=== PATIENT | male | born 1940 | race African-American/Black ===

== ENCOUNTER → 2025-01-23 | Outpatient (CLI) | payer MEDICARE, BC, SELFPAY ==
[2025-01-23 10:08] LABS: Coccid Serology, CF (UCD)* See Sep Rpt
[2025-01-23 10:45] LABS: Basophils % (Auto) 1 % (0-2.5); Eosinophils # (Auto) 0.1 Thou/mm3 (0.0-0.5); Eosinophils % (Auto) 2 % (0-10); Hematocrit 31.9 % (41.0-53.0); Hemoglobin 10.6 g/dL (13.5-16.0); Immature Granulocytes % (Auto) 1 % (0-0); Immature Granulocytes Auto 0.04 Thou/mm3 (0.00-0.00); Lymphocytes # (Auto) 0.8 Thou/mm3 (1.0-4.8); Lymphocytes % (Auto) 27 % (10-50); Mean Corpuscular HGB Conc 33.2 g/dl (31.0-37.0); Mean Corpuscular Hemoglobin 32.9 pg (25.0-35.0); Mean Corpuscular Volume 99 fL (80-100); Monocytes # (Auto) 0.3 Thou/mm3 (0.0-0.8); Monocytes % (Auto) 12 % (0-12); Neutrophils # (Auto) 1.7 Thou/mm3 (1.8-7.7); Neutrophils % (Auto) 57 % (37-80); Nucleated Red Blood Cell % 0 /100 WBC (0); Platelet Count 124 Thou/mm3 (140-440); RDW Standard Deviation 50.8 fL (35.1-43.9); Red Blood Count 3.22 Miln/mm3 (4.50-5.90)
[2025-01-23 10:52] LABS: Glucose Estimated Average 103 mg/dL (80-131); Hemoglobin A1C 5.2 % Hgb (4.8-6.0)
[2025-01-23 11:13] LABS: Alanine Aminotransferase 15 U/L (10-49); Albumin, Serum 3.7 gm/dL (3.4-4.8); Albumin/Globulin Ratio 1.9 (1.2-2.2); Alkaline Phosphatase 110 U/L (46-116); Anion Gap 7 (7-16); Aspartate Amino Transferase 22 U/L (0-34); BUN/Creatinine Ratio 15 Ratio (12-20); Bilirubin,Total 0.4 mg/dL (0.3-1.2); Blood Urea Nitrogen 29 mg/dL (9-23); Calcium 8.9 mg/dL (8.3-10.6); Calcium (Corrected) 9.1 mg/dL (8.5-10.1); Carbon Dioxide 24.9 mMol/L (20.0-31.0); Cardiac Risk Estimate 2.6 RATIO (4.0-6.7); Chloride 112 mMol/L (98-107); Cholesterol 115 mg/dL (132-200); Creatinine (Component) 1.9 mg/dL (0.6-1.3); Free T4 (Free Thyroxine) 0.99 ng/dL (0.89-1.76); Glucose 92 mg/dL (74-106); HDL Cholesterol 44 mg/dL (40-60); LDL Cholesterol,Calculated 59 mg/dL (0-130); Osmolality,Calculated 292 (275-295); Potassium 4.4 mMol/L (3.4-5.1); Sodium 144 mMol/L (136-145); Thyroid Stimulating Hormone 2.21 uIU/mL (0.55-4.78); Total Protein 5.7 gm/dL (5.7-8.2); Triglycerides 60 mg/dL (30-150); eGFR 34 See Note
== END | disposition home or self-care (01) ==
PROVIDERS: PCP Internal Medicine; Referring Provider Internal Medicine Infectious Disease; Visit Provider Internal Medicine Infectious Disease
DX: I50.9 Heart failure, unspecified (principal)
CPT/HCPCS: 36415; 80053; 80061; 82306; 83036; 84439; 84443; 85025; 86171

== ENCOUNTER 2025-08-05 13:04 | Inpatient (IN) | payer MEDICARE, BC, SELFPAY ==
[2025-08-05] VITALS (13 sets, daily range): BP systolic 139–163; BP diastolic 75–95; PULSE 61–89; RESP 15–100; TEMP 36.1–36.6; O2SAT 98–100
--- NOTE | 2025-08-05 13:07 | EKG_ITS ---
[facility] Test Date: 2025-08-05 Pat Name: GENTRY KERNS Department: Room: - Gender: Male Floor Specialist: : 1940 Requested By: Rubi Sky Order Number: [id number] Reading MD: Rubi Sky Measurements Intervals [place] Rate: 68 P: 69 MT: 278 QRS: 57 QRSD: 82 T: 68 QT: 406 QTc: 434 Interpretive Statements SINUS RHYTHM WITH FIRST DEGREE AV BLOCK MINIMAL VOLTAGE CRITERIA FOR LVH, CONSIDER NORMAL VARIANT [MEETS CRITERIA IN ONE OF: R(aVL), S(V1), R(V5), R(V5/V6)+S(V1)] Compared to ECG 04/21/2024 12:27:41 First degree AV block now present /store/S0/[id number].pdf
--- NOTE | 2025-08-05 13:08 | PD.EDAMS ---
Altered Mental Status RME/HPI General Chief Complaint: Altered Mental Status Stated Complaint: AMS Time Seen by Provider: 08/05/25 13:07 Arrival date/time: 08/05/25 13:04 Limitations: physical limitation RME / HPI RME / HPI narrative: DR. 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 Per EMS, last known well time is unknown, though they estimate onset of altered status around 12:30 pm today when they were called. GCS was 14 en route. Patient is chronically bed bound. He is afebrile at 96.5?F rectal here at arrival. No chest or abdominal pain reported. Related Data Home Medications ?Medication ?Instructions ?Recorded ?Confirmed atenolol 50 mg tablet 50 mg PO DAILY ##0 12/23/10 08/06/25 fluconazole 200 mg tablet 200 mg PO DAILY 04/21/24 08/06/25 loperamide 2 mg capsule 2 mg PO BID PRN loose stool 08/06/25 08/06/25 tamsulosin 0.4 mg capsule 0.4 mg PO Q24H 08/06/25 08/06/25 Previous Rx's ?Medication ?Instructions ?Recorded amlodipine 2.5 mg tablet 2.5 mg PO HS #30 tabs 08/09/25 aspirin 81 mg capsule 81 mg PO QDAY #19 caps 08/09/25 atorvastatin 80 mg tablet (Lipitor) 80 mg PO QPM #30 tabs 08/09/25 clopidogrel 75 mg tablet 75 mg PO QDAY #30 tabs 08/09/25 Allergies Allergy/AdvReac Type Severity Reaction Status Date / Time doxycycline Allergy Severe WHELPS Verified 10/31/23 16:23 IMMEDIATELY fibrinolysin AdvReac Severe Rash Verified 04/21/24 11:45 morphine AdvReac Severe PARANOID, Verified 04/21/24 11:45 HALLUCINATIONS Review of Systems Review of Systems Systems Reviewed: All systems reviewed, normal except as documented Past Medical History Past Medical History CARDIAC: Positive Cardiac Disorders and Hypertension GASTROINTESTINAL: Positive Gastrointestinal Disorders, Gastrointestinal Bleed and Diverticulitis GENITOURINARY: Positive Genitourinary Disorders, Prostate Cancer and Benign Prostatic Hyperplasia ENT: Positive Cataracts (bilateral) HEMATOLOGIC: Positive Blood Disorders and Anemia OTHER HISTORY: Positive Blood Transfusions, Radiation Therapy, Cancer and Prostate Cancer Surgical History SURGICAL: Positive Bowel Surgery Social History SMOKING STATUS: Never smoker SUBSTANCE USE: does not use ALCOHOL: Never Travel History EBOLA RISK: No ED Exam General Limitations: Present physical limitation General appearance: Present other (chronically ill, acutely decompensating male, confused) Head Head exam: Present atraumatic, normocephalic and normal inspection Eye Eye exam: Present normal appearance, PERRL and EOMI ENT ENT exam: Present normal exam, normal oropharynx and mucous membranes moist Neck Neck exam: Present normal inspection, full ROM and trachea midline Chest Chest inspection: Present normal inspection and symmetric chest wall rise Respiratory Respiratory exam: Present normal lung sounds bilaterally Cardiovascular Cardiovascular exam: Present regular rate, normal rhythm and normal heart sounds Abdominal Exam Abdominal exam: Present soft and normal bowel sounds Extremities Exam Extremities exam: Present other (minimal movement of the right extremities but good movement of the left side) Back Exam Back exam: Present normal inspection Neurological Exam Neurological exam: Present other (confused; minimal movement of the right extremities but good movement of the left side) Psychiatric Psychiatric exam: Present normal affect and normal mood Skin Skin exam: Present warm, dry, intact and normal color Course Quality Measures Current suspected stage: sepsis Possible source: unknown Blood cultures ordered: yes Antibiotic ordered: Yes Pertinent labs: 08/05/25 13:21 Lactic Acid 1.9 mMol/L (0.4-2.0) Procalcitonin 0.10 ng/ml (0.0-0.49) 1658: Sepsis alert initiated. Orders made at this time are congruent with ED Adult Sepsis Order List. Re-evaluation is to be completed. 1730: Sepsis reassessment performed consisting of lab review, vitals, physical exam including auscultation of heart, lungs, and visual evaluation of capillary refills, mucosal membranes and extremities. sepsis Orders Category Date Time Status Bedside Blood Glucose NOW Care 08/05/25 13:07 Completed Bedside Blood Glucose NOW Care 08/05/25 16:29 Completed Bedside COVID-19 Antigen Test NOW Care 08/05/25 13:07 Completed Picker / Packer NOW Care 08/05/25 16:29 Completed Picker / Packer Q4H START 00 Care 08/05/25 13:07 Completed Continuous Pulse Oximetry NOW Care 08/05/25 16:29 Completed In and Out Catheter NEEDED Care 08/05/25 16:29 Completed Insert IV NOW Care 08/05/25 13:07 Completed Insert IV NOW Care 08/05/25 16:29 Completed NIH Stroke Scale now Care 08/05/25 16:29 Completed NPO NOW Care 08/05/25 16:29 Completed Nurse Swallow Screen x1 Care 08/05/25 16:29 Completed Straight [In and Out Catheter] X1 Care 08/05/25 13:10 Completed Strict Intake and Output Routine Care 08/05/25 13:07 Ordered Consult to Neurology / Tele-Neurology Routine Cons 08/05/25 16:[address] angio stroke protocol Stat Exams 08/05/25 16:[address] head/brain wo con Stat Exams 08/05/25 13:07 Completed XR chest 1V SEPSIS PROTOCOL Stat Exams 08/05/25 13:07 Completed Acetaminophen Stat Lab 08/05/25 13:21 Completed Ammonia Stat Lab 08/05/25 13:21 Completed Blood Culture (Lab) Stat Lab 08/05/25 13:18 Completed CBC Stat Lab 08/05/25 13:21 Completed CK [Creatine Kinase] Stat Lab 08/05/25 17:12 Completed Comprehensive Metabolic Panel Stat Lab 08/05/25 13:21 Completed Drug Screen,Urine Stat Lab 08/05/25 13:45 Completed Influenza A & B Rapid Panel Stat Lab 08/05/25 13:15 Completed Lactate (Lactic Acid) Stat Lab 08/05/25 13:21 Completed Partial Thromboplastin Time Stat Lab 08/05/25 13:21 Completed Procalcitonin Stat Lab 08/05/25 13:21 Completed Prothrombin Time with INR Stat Lab 08/05/25 13:21 Completed Prothrombin Time with INR Stat Lab 08/05/25 17:22 Completed Salicylate Stat Lab 08/05/25 13:21 Completed T4 (Thyroxine) Stat Lab 08/05/25 13:21 Completed TSH [Thyroid Stimulating Hormone] Stat Lab 08/05/25 13:21 Completed Troponin I Stat Lab 08/05/25 13:21 Completed Urinalysis Stat Lab 08/05/25 13:45 Completed Urine Culture Stat Lab 08/05/25 13:45 Completed Ringers Lactated 500 ml [Lactated Ringers] 500 ml Med 08/05/25 13:40 Discontinued IV 500 mls/hr cefTRIAXone/D5w 1gm IV premix [Rocephin/D5w 1gm IV Med 08/05/25 13:40 Discontinued premix] 1 gm in 50 ml IV STAT EKG (RT) Stat RT 08/05/25 13:07 Draft Oxygen Delivery NOW RT 08/05/25 13:07 Completed Oxygen Delivery NOW RT 08/05/25 16:29 Completed Vital Signs Vital signs: Vital Signs Pulse Rate 61 08/05/25 13:55 Respiratory Rate 19 08/05/25 13:55 Altered Mental Status MDM Narrative MDM Narrative:: Patient is an 84-year-old male medical history notable for hypertension, pulmonary cocci of mycoses, chronic venous insufficiency, chronic kidney disease is in the emergency department with acute confusion. Vital signs and exam as listed. Patient mildly hypothermic. Concern for SIRS, urinary tract infection, pneumonia, intracranial hemorrhage, metabolic disturbance, ACS. Ordered labs EKG chest x-ray as well as CT brain. Also offered medication for symptom relief and gentle fluid resuscitation. My interpretation: EKG performed at 1311 hours, sinus rhythm, rate 68, prolonged QT at 406, non specific T wave changes, not a cardiac alert 1:55p called listed phone numbers for family NA Labs without any acute hematologic abnormality. Patient without any white blood cell ovation, hemoglobin is at his baseline 10.5. Platelets 132, also at patient's baseline. Metabolic panel chronic kidney disease, creatinine at his baseline of 1.9. Lactic acid normal. Ammonia 38. Procalcitonin normal, thyroid studies unremarkable. Troponin not elevated. Urinalysis with 17 RBCs less than 1 WBC, negative leuk esterase, negative nitrites no bacteria less likely infected. Drug screen negative. Head CT with evidence of encephalomalacia however no acute abnormalities. Chest x-ray with mild vascular congestion. Patient is on room air. No lower extremity swelling. 4:28p patient's son arrival, let us know that the patient usually walks, moves all extremities and make sense and takes care of himself at home. He has been in distress because of the loss of his approximately 2 months ago. However patient not speaking clearly and not recognizing him is new as of last night in the late evening. Given new history provided by son activated patient as a stroke alert. Patient is outside of TNK window. CT brain and CTA head/neck w/o acute abnormalities. Concenr that patient may have had a stroke. Admitted to hospitalist service. I, Mary Griffin, am scribing for and in the presence of Dr. Soriano. 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 RADIOLOGY Procedure(s): CT head/brain wo con Accession Number(s): [id number] cc: Rufus Jon MD; Rubi Soriano MD~ Examination: CT brain head without contrast. 2-D sagittal coronal reconstructions Date and time of exam:August 05, 2025, 1323 hrs. Indications: Altered mental status today Comparison: October 10, 2021 CTDI: vol (mGy):50 DLP: (mGycm):1004 Technique: Multiple CT axial sections of the brain have been obtained, 5 mm slice thickness. Contrast has not been administered. 2-D sagittal, coronal reconstructions have been obtained Low dose protocols were performed. One or more of the following dose reduction techniques were used; automated exposure control, adjustment of the mA and/or KV according to patient size, use of iterative reconstruction technique. Findings: No significant ventricular enlargement. 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 No mass effect or midline shift Basal cisterns are not remarkable. Fourth ventricle is midline. Cranial vault intact. Impression: No interval acute hemorrhage, mass effect or midline shift Dictated By: Rufus Jon MD Procedure(s): XR chest 1V SEPSIS PROTOCOL Accession Number(s): [id number] cc: Rufus Jon MD; Rubi Soriano MD~ Examination: AP chest single view Technique one AP portable semiupright chest single view Date and time: August 05, 2025, 1319 hrs., Comparison April 21, 2024 Indications: Shortness of breath today Findings: Mild prominence left ventricle Mild to moderate vascular congestion. No lobar pneumonia or drake pulmonary edema Prominent osteopenia Impression: Mild to moderate vascular congestion Dictated By: Rufus Jon MD Medications / Prescriptions Medications or Prescriptions considered but not ordered:: none Medication administrations:: Medication Administration History Discontinued Medications Acetaminophen (Acetaminophen 325 Mg Tablet) 650 mg PO Q6HR PRN PRN Reason: Fever > 99.9 Stop: 09/04/25 19:47 Last Admin: 08/08/25 20:29 Dose: 650 mg Documented By: MONICO Amlodipine Besylate (Amlodipine Besylate 2.5 Mg Tablet) 2.5 mg PO HS MARCELLA Stop: 09/06/25 20:59 Last Admin: 08/08/25 20:32 Dose: 2.5 mg Documented By: Admin: 08/07/25 20:17 Dose: 2.5 mg Documented By: CASTRO Aspirin (Aspirin 325 Mg Tablet) 325 mg PO X1 ONE Stop: 08/05/25 19:44 Last Admin: 08/05/25 20:43 Dose: 325 mg Documented By: AMITA Aspirin (Aspirin Ec 81 Mg Tabec) 81 mg PO DAILY MARCELLA Stop: 09/05/25 08:59 Last Admin: 08/07/25 09:09 Dose: 81 mg Documented By: Admin: 08/06/25 08:37 Dose: 81 mg Documented By: KATY Aspirin (Aspirin 81 Mg Chew) 81 mg PO DAILY MARCELLA Stop: 09/05/25 08:59 Last Admin: 08/09/25 08:25 Dose: 81 mg Documented By: Admin: 08/08/25 08:37 Dose: 81 mg Documented By: ALLEN Comments: Ok to give per Dr. Martínez Atenolol (Atenolol 25 Mg Tablet) 50 mg PO DAILY MARCELLA Stop: 09/06/25 08:59 Last Admin: 08/09/25 08:24 Dose: 50 mg Documented By: Admin: 08/08/25 08:53 Dose: Not Given Documented By: ALLEN Non-Admin Reason: Held for Procedure Admin: 08/07/25 09:09 Dose: 50 mg Documented By: ESTHER Atorvastatin Calcium (Atorvastatin Calcium 20 Mg Tablet) 40 mg PO HS MARCELLA Stop: 09/04/25 20:59 Last Admin: 08/07/25 20:17 Dose: 40 mg Documented By: Admin: 08/06/25 20:18 Dose: 40 mg Documented By: Admin: 08/05/25 23:39 Dose: 40 mg Documented By: Atorvastatin Calcium (Atorvastatin Calcium 20 Mg Tablet) 80 mg PO HS MARCELLA Stop: 09/07/25 20:59 Last Admin: 08/08/25 20:28 Dose: 80 mg Documented By: [email or web address] Atropine Sulfate (Atropine Sulf Inj 1 Mg/Ml Vial) Confirm Administered Dose 1 mg .ROUTE .STK-MED ONE Stop: 08/08/25 12:06 Last Admin: 08/08/25 12:19 Dose: Not Given Documented By: JUSTO Non-Admin Reason: Duplicate Medication on eMAR Benzocaine (Benzocaine 20% (Hurricaine) [place] 1 Dose) Confirm Administered Dose 1 dose TOP .STK-MED ONE Stop: 08/08/25 12:06 Last Admin: 08/08/25 12:19 Dose: Not Given Documented By: JUSTO Non-Admin Reason: Duplicate Medication on eMAR Benzocaine (Benzocaine 20% (Hurricaine) [place] 1 Dose) 0 dose TOP X1 ONE Stop: 08/08/25 13:49 Last Admin: 08/08/25 13:49 Dose: 1 dose Documented By: JUSTO Clopidogrel Bisulfate (Clopidogrel Bisulfate 75 Mg Tablet) 300 mg PO X1 ONE Stop: 08/05/25 19:44 Last Admin: 08/05/25 20:43 Dose: 300 mg Documented By: AMITA Clopidogrel Bisulfate (Clopidogrel Bisulfate 75 Mg Tablet) 75 mg PO DAILY MARCELLA Stop: 09/05/25 08:59 Last Admin: 08/09/25 08:25 Dose: 75 mg Documented By: Admin: 08/08/25 08:37 Dose: 75 mg Documented By: ALLEN Comments: Ok to give per Dr. Martínez Admin: 08/07/25 09:10 Dose: 75 mg Documented By: Admin: 08/06/25 08:37 Dose: 75 mg Documented By: KATY Olanzapine 5 mg/ Sterile Water (2.1 ml) 0 mg IV QDAY [facility] Stop: 09/07/25 23:15 Last Admin: 08/08/25 23:42 Dose: Not Given Documented By: SOCO Non-Admin Reason: GIVEN IM Olanzapine 5 mg/ Sterile Water (2.1 ml) 0 mg IM QDAY [facility] Stop: 09/08/25 08:59 Olanzapine 5 mg/ Sterile Water (2.1 ml) 0 mg IM QDAY MARCELLA Stop: 09/07/25 23:40 Last Admin: 08/08/25 23:42 Dose: 1 dose Documented By: SOCO Comments: 5MG Fentanyl Citrate (Fentanyl Cit Inj 50 Mcg/Ml Amp 2ml) Confirm Administered Dose 200 mcg .ROUTE .STK-MED ONE Stop: 08/08/25 12:06 Last Admin: 08/08/25 12:19 Dose: Not Given Documented By: JUSTO Non-Admin Reason: Duplicate Medication on eMAR Fentanyl Citrate (Fentanyl Cit Inj 50 Mcg/Ml Amp 2ml) 50 mcg IVP X1 ONE Stop: 08/08/25 13:49 Last Admin: 08/08/25 13:49 Dose: 50 mcg Documented By: JUSTO Fluconazole (Fluconazole 100 Mg Tablet) 200 mg PO BID MARCELLA Stop: 08/15/25 08:59 Last Admin: 08/09/25 08:25 Dose: 200 mg Documented By: Admin: 08/08/25 20:28 Dose: 200 mg Documented By: Admin: 08/08/25 08:50 Dose: 200 mg Documented By: ALLEN Comments: ok to give per Dr. Martínez Flumazenil (Flumazenil Inj 0.1 Mg/Ml Vial 10 Ml) Confirm Administered Dose 1 mg .ROUTE .STK-MED ONE Stop: 08/08/25 12:07 Last Admin: 08/08/25 12:19 Dose: Not Given Documented By: DL Non-Admin Reason: Duplicate Medication on eMAR Heparin Sodium (Porcine) (Heparin Sod Inj 5000 Unit/Ml Vial) 5,000 unit SC Q8HR [facility] Stop: 08/20/25 13:59 Last Admin: 08/09/25 13:47 Dose: 5,000 unit Documented By: ALLEN Co-signed By: SC Admin: 08/09/25 05:34 Dose: 5,000 unit Documented By: MONICO Co-signed By: AD Admin: 08/08/25 22:00 Dose: Not Given Documented By: MONICO Non-Admin Reason: Patient Refused Admin: 08/08/25 15:39 Dose: 5,000 unit Documented By: ALLEN Co-signed By: LIZY Comments: Med given late due to patient returning from procedure at 1525 Admin: 08/08/25 05:03 Dose: 5,000 unit Documented By: IG Co-signed By: WB Admin: 08/07/25 21:15 Dose: 5,000 unit Documented By: IG Co-signed By: ALBERTA Admin: 08/07/25 13:24 Dose: 5,000 unit Documented By: ESTHER Co-signed By: CONNOR Admin: 08/07/25 05:41 Dose: 5,000 unit Documented By: IG Co-signed By: FIOR Admin: 08/06/25 21:05 Dose: 5,000 unit Documented By: IG Co-signed By: REUBEN Admin: 08/06/25 13:45 Dose: 5,000 unit Documented By: BR Co-signed By: MGD Ceftriaxone Sodium/Dextrose (Rocephin/D5w 1gm Iv Premix) 1 gm in 50 mls @ 100 mls/hr IV STAT STA Stop: 08/05/25 14:09 Last Infusion: 08/05/25 14:43 Dose: Infused Documented By: Admin: 08/05/25 14:13 Dose: 100 mls/hr Documented By: NIKOLAS Lactated Ringer's (Lactated Ringers) 500 mls @ 500 mls/hr IV .Q1H ONE Stop: 08/05/25 14:39 Last Infusion: 08/05/25 16:01 Dose: Infused Documented By: Admin: 08/05/25 14:25 Dose: 500 mls/hr Documented By: NIKOLAS Lactated Ringer's (Lactated Ringers) 1,000 mls @ 85 mls/hr IV .[id number] ONE Stop: 08/06/25 07:31 Last Admin: 08/05/25 20:46 Dose: 85 mls/hr Documented By: BD Lactated Ringer's (Lactated Ringers) 1,000 mls @ 100 mls/hr IV .Q10H MARCELLA Stop: 08/08/25 18:14 Last Admin: 08/08/25 08:37 Dose: 100 mls/hr Documented By: ALLEN Magnesium Sulfate (Magnesium Sulfate Ivpb) 4 gm in 50 mls @ 12.5 mls/hr IV X1 ONE Stop: 08/09/25 11:29 Last Admin: 08/09/25 08:07 Dose: 12.5 mls/hr Documented By: ALLEN Midazolam HCl (Midazolam Inj 1 Mg/Ml Vial 2 Ml) Confirm Administered Dose 2 mg .ROUTE .STK-MED ONE Stop: 08/08/25 12:06 Last Admin: 08/08/25 12:19 Dose: Not Given Documented By: DL Non-Admin Reason: Duplicate Medication on eMAR Midazolam HCl (Midazolam Inj 1 Mg/Ml Vial 2 Ml) Confirm Administered Dose 4 mg .ROUTE .STK-MED ONE Stop: 08/08/25 12:08 Last Admin: 08/08/25 12:19 Dose: Not Given Documented By: DL Non-Admin Reason: Duplicate Medication on eMAR Midazolam HCl (Midazolam Inj 1 Mg/Ml Vial 2 Ml) 3 mg IVP X1 ONE Stop: 08/08/25 13:49 Last Admin: 08/08/25 13:49 Dose: 3 mg Documented By: JUSTO Naloxone HCl (Naloxone Inj 0.4 Mg/Ml Vial) Confirm Administered Dose 0.4 mg .ROUTE .STK-MED ONE Stop: 08/08/25 12:07 Last Admin: 08/08/25 12:19 Dose: Not Given Documented By: JUSTO Non-Admin Reason: Duplicate Medication on eMAR Ondansetron HCl (Ondansetron Inj 2 Mg/Ml Inj 2 Ml) 4 mg IVP Q6H PRN; Protocol PRN Reason: NAUSEA OR VOMITING Stop: 09/04/25 18:37 Ondansetron HCl (Ondansetron Inj 2 Mg/Ml Inj 2 Ml) Confirm Administered Dose 4 mg .ROUTE .STK-MED ONE Stop: 08/08/25 12:07 Last Admin: 08/08/25 12:19 Dose: Not Given Documented By: JUSTO Non-Admin Reason: Duplicate Medication on eMAR Tamsulosin HCl (Tamsulosin Hcl 0.4 Mg Capsule) 0.4 mg PO Q24H MARCELLA Stop: 09/06/25 08:59 Last Admin: 08/09/25 08:25 Dose: 0.4 mg Documented By: Admin: 08/08/25 08:53 Dose: Not Given Documented By: ALLEN Non-Admin Reason: Held for Procedure Admin: 08/07/25 09:09 Dose: 0.4 mg Documented By: ESTHER see above if any Consultations Consultation(s) initiated? (list below): Yes Consultation #1 (Physician, Specialty, Details): Discussed test HPI, PMHx, lab, radiology results and/or management with resident working with the hospitalist. Will admit for further evaluation and management. Accepts patient for admission. Time: 17:57 Diagnosis Differential diagnosis altered mental status: other (Acute ischemic stroke, metabolic encephalopathy, and infection-related delirium.) Most likely diagnosis given after review of the tests above:: See below under clinical impression Admission Indicated Admission indicated?: indicated Admission Request Was there a request for admission?: Yes Admission Attestation Admission request attestation: Discussed case with Hospitalist service regarding admission. Discussed patients ED course, exam findings, labs, and radiology results. The Hospitalist [agrees] to accept the patient for admission. Disposition Plan Disposition Plan: Admit Critical Care Time Critical Care Time Critical Care Time: Yes Total Critical Care Time (min.): 60 Attestation: The high probability of sudden, clinically significant deterioration in the patient?s condition required the highest level of my preparedness to intervene urgently. The services I provided to this patient were to treat and/or prevent clinically significant deterioration. Services included the following: chart data review, reviewing nursing notes and/or old charts, documentation time, managing consultant collaboration regarding findings and treatment options, medication orders and management, direct patient care, vital sign assessments and ordering, interpreting and reviewing diagnostic studies and lab tests. Aggregate critical care time includes only time during which I was engaged in work directly related to the patient?s care, as described above, whether at bedside or elsewhere in the Emergency Department. It did not include time spent performing other reported procedures or the services of residents, students, nurses or physician assistants. Discharge Plan Plan Patient Disposition: Admit Acute Care w/in Hospital Patient condition on transfer: Stable Problem List Clinical Impression: Stroke Patient/Caregiver Discharge Instructions Other Activity Instructions:: Please follow-up with primary care physician within 5 days of admission Please follow-up with neurology within 5 to 7 days upon discharge Continue taking aspirin and Plavix until August 28 and afterwards discontinue the aspirin and continue taking Plavix daily. Continue taking atorvastatin 80 mg at bedtime Continue taking all other home medications as prescribed Please come back to the ER if symptoms persist or worsen.
[2025-08-05 13:42] LABS: Basophils # (Auto) 0.0 Thou/mm3 (0.0-0.2); Basophils % (Auto) 0 % (0-2.5); Eosinophils # (Auto) 0.1 Thou/mm3 (0.0-0.5); Eosinophils % (Auto) 1 % (0-10); Hematocrit 30.4 % (41.0-53.0); Hemoglobin 10.5 g/dL (13.5-16.0); Immature Granulocytes Auto 0.02 Thou/mm3 (0.00-0.00); Lactate (Lactic Acid) 1.9 mMol/L (0.4-2.0); Lymphocytes # (Auto) 0.8 Thou/mm3 (1.0-4.8); Lymphocytes % (Auto) 18 % (10-50); Mean Corpuscular HGB Conc 34.5 g/dl (31.0-37.0); Mean Corpuscular Hemoglobin 33.3 pg (25.0-35.0); Mean Corpuscular Volume 97 fL (80-100); Monocytes # (Auto) 0.6 Thou/mm3 (0.0-0.8); Monocytes % (Auto) 13 % (0-12); Neutrophils # (Auto) 2.9 Thou/mm3 (1.8-7.7); Neutrophils % (Auto) 67 % (37-80); Nucleated Red Blood Cell # 0.00 Thou/mm3 (0.00-0.00); Nucleated Red Blood Cell % 0 /100 WBC (0); Platelet Count 132 Thou/mm3 (140-440); RDW Standard Deviation 48.3 fL (35.1-43.9); Red Blood Count 3.15 Miln/mm3 (4.50-5.90); White Blood Count 4.3 Thou/mm3 (3.8-10.6)
[2025-08-05 14:00] LABS: INR 1.1 (0.9-1.3); Partial Thromboplastin Time 23.4 Seconds (22.0-36.0); Prothrombin Time 11.5 Seconds (9.0-12.2)
[2025-08-05 14:09] LABS: T4 (Thyroxine) 8.8 mcg/dL (4.5-10.9)
[2025-08-05] MEDS: cefTRIAXone/D5w 1gm IV premix 1 GM/50 ML BAG IV (14:13)
[2025-08-05 14:14] LABS: Acetaminophen < 2.0 mcg/mL (10.0-20.0); Alanine Aminotransferase 12 U/L (10-49); Albumin, Serum 3.9 gm/dL (3.4-4.8); Albumin/Globulin Ratio 1.7 (1.2-2.2); Alkaline Phosphatase 120 U/L (46-116); Anion Gap 9 (7-16); Aspartate Amino Transferase 29 U/L (0-34); BUN/Creatinine Ratio 15 Ratio (12-20); Bilirubin,Total 0.5 mg/dL (0.3-1.2); Blood Urea Nitrogen 28 mg/dL (9-23); Calcium 9.7 mg/dL (8.3-10.6); Calcium (Corrected) 9.8 mg/dL (8.5-10.1); Carbon Dioxide 21.0 mMol/L (20.0-31.0); Chloride 113 mMol/L (98-107); Creatinine (Component) 1.9 mg/dL (0.6-1.3); Globulin 2.3 gm/dL (2.3-3.5); Glucose 103 mg/dL (74-106); Osmolality,Calculated 290 (275-295); Potassium 4.9 mMol/L (3.4-5.1); Salicylate < 3.0 mg/dL; Sodium 143 mMol/L (136-145); Thyroid Stimulating Hormone 1.58 uIU/mL (0.55-4.78); Total Protein 6.2 gm/dL (5.7-8.2); Troponin I < 0.020 ng/mL (0.0-0.045); eGFR 34 See Note
[2025-08-05 14:14] LABS: Collection Type, Urine Clean Catch
[2025-08-05 14:15] LABS: Procalcitonin 0.10 ng/ml (0.0-0.49)
[2025-08-05 14:20] LABS: Influenza A Ag Negative; Influenza B Ag Negative
[2025-08-05 14:23] LABS: Bilirubin,Urine Negative (Negative); Blood,Urine 1+ (Negative); Clarity,Urine Clear (Clear/Hazy); Color,Urine Lt-Yellow (Lt Yel-Yel); Glucose, Urine Negative (Negative); Ketones,Urine Negative (Negative); Leukocyte Esterase,Urine Negative (Negative); Nitrite,Urine Negative (Negative); PH,Urine 5.5 (5.0-7.0); Protein,Urine Trace (Neg - Trace); RBC,Urine 17 /hpf (0-3); Specific Gravity,Urine 1.012 (1.001-1.035); Squamous Epithelial Cell,Urine < 1 /hpf (0-5); Urobilinogen,Urine Negative mg/dL (0.0-1.0); WBC,Urine < 1 /hpf (0-5)
[2025-08-05] MEDS: RINGERS LACTATED 500 ML 500 ML IV (14:25)
[2025-08-05 14:27] LABS: Ammonia 38 uMol/L (11-32)
[2025-08-05 14:41] LABS: Amphetamine/Methamp Scrn,U Negative (Negative); Barbiturate Screen,Urine Negative (Negative); Benzodiazepines Screen,Urine Negative (Negative); Benzoylecgonine Screen, Ur Negative (Negative); Fentanyl Screen,Urine Negative (Negative); Opiate Screen,Urine Negative (Negative); THC Screen,Urine Negative (Negative)
--- NOTE | 2025-08-05 16:29 | XR_ITS ---
Examination: CTA carotids with intravenous contrast CTA brain, head with intravenous contrast. 2-D sagittal, coronal reconstructions. 3-D reconstructions. Exam date and time: August 05, 2025, 1658 hrs. Indications: Onset focal neurologic deficit, clinical diagnosis stroke suspected, altered mental status, right-sided body weakness today CTDI: vol (mGy) 19.8 DLP: (mGycm) 488 Technique: Multiple CTA axial brain, head carotid images post intravenous contrast injection 75 cc, [id number]. 2-D sagittal, coronal reconstructions. 3-D reconstructions, 3-D post processing including vascular maximum intensity projection images. Low dose protocols were performed. One or more of the following dose reduction techniques were used; automated exposure control, adjustment of the mA and/or KV according to patient size, use of iterative reconstruction technique. Findings: Moderate calcification of the carotid bifurcations but no significant stenoses carotid bifurcations common carotid arteries or internal carotid arteries Dominant left vertebral artery in the neck with no critical vertebral artery stenoses Petrous juxtasellar internal carotid arteries intact M1 segments middle cerebral arteries middle cerebral artery trifurcation vessels anterior cerebral arteries fill with no large vessel occlusions Intracranial vertebral arteries basilar artery posterior cerebral branches fill with no large vessel occlusions Impression: No significant neck arterial stenoses No cerebral large vessel arterial occlusions or thrombus Given the patient's presentation, consider brain MRI MRA without contrast, stroke protocol, follow-up
--- NOTE | 2025-08-05 17:08 | PD.TNEURO ---
Tele Neuro Consultation Consultation Date 08/05/25 Most Recent Vital Signs Last Vital Signs Temp 96.9 F 08/05/25 16:03 Pulse 75 08/05/25 16:03 Resp 19 08/05/25 16:03 BP 163/75 H 08/05/25 16:03 Pulse Ox 100 08/05/25 16:03 O2 Del Method Room Air 08/05/25 16:03 Laboratory-Coagulation Panel PT 11.5 Seconds (9.0-12.2) 08/05/25 13:21 INR 1.1 (0.9-1.3) 08/05/25 13:21 APTT 23.4 Seconds (22.0-36.0) 08/05/25 13:21 Consultation Narrative [facility] Tele[facility]urology Consult Services Patient Name:???Escobar Perez Date of :???[id number] Identification Number:??? Date of Service:???08/05/2025 16:29:25 Diagnosis:?G93.49 - Encephalopathy Multifactorial Impression: ?This patient is an 84-year-old male with a past medical history of pulmonary coccidiomycosis, CKD, and hypertension presenting for evaluation of altered mental status. Patient appears mildly encephalopathic, but also has drift along the right side which appears to be new. Recommend thorough toxic metabolic evaluation in addition to stroke workup. Dual antiplatelet therapy with a plan for 21 days followed by aspirin monotherapy. MRI brain, echocardiogram, A1c, lipid. ? ?The patient is out of the window for thrombolytic administration and CT angiogram does not appear to demonstrate evidence of large vessel occlusion. Our recommendations are outlined below. Recommendations: ? Stroke/Telemetry Floor ? Neuro Checks (Q4) ? Bedside Swallow Eval ? DVT Prophylaxis ? IV Fluids, Normal Saline ? Head of Bed 30 Degrees ? Euglycemia and Avoid Hyperthermia (PRN Acetaminophen) ? Bolus with Clopidogrel 300 mg bolus x1 and initiate dual antiplatelet therapy with Aspirin 81 mg daily and Clopidogrel 75 mg daily ? Antihypertensives PRN if Blood pressure is greater than 220/120 or there is a concern for End organ damage/contraindications for permissive HTN. If blood pressure is greater than 220/120 give labetalol PO or IV or Vasotec IV with a goal of 15% reduction in BP during the first 24 hours. Sign Out: ? Discussed with Emergency Department Provider Advanced Imaging:Advanced imaging has been ordered. Results pending. Metrics: Last Known Well: Unknown Dispatch Time: 08/05/2025 16:29:25 Arrival Time: 08/05/2025 13:04:00 Initial Response Time: 08/05/2025 16:32:07Symptoms: ams. Initial patient interaction: 08/05/2025 16:35:20 NIHSS Assessment Completed: 08/05/2025 16:42:34Patient is not a candidate for Thrombolytic. Thrombolytic Medical Decision: 08/05/2025 16:42:35Patient was not deemed candidate for Thrombolytic because of following reasons: LKW outside 4.[address] Head: I personally reviewed all the CT images that were available to me and it showed: no acute findings Primary Provider Notified of Diagnostic Impression and Management Plan on: 08/05/2025 16:52:25 History of Present Illness:Patient is a 84 year old Male. Patient was brought by EMS for symptoms of ams. This patient is a 84-year-old male with a past medical history of pulmonary coccidioidomycosis, CKD, and hypertension presenting for evaluation of altered mental status. Patient states that he feels weak and confused, but is unable to tell me when the symptoms started. He feels that he is somewhat weaker on the right compared to the left, and states that he does have a prior history of stroke. He appears mildly encephalopathic and intermittently redirectable to history of present illness and examination. Family states that typically at baseline he is fully functional and independent, but yesterday afternoon began to appear weak was discovered this morning on waking to be severely altered. Last known well is unclear. ? Past Medical History: ?Hypertension Other PMH:? CKD ?Pulmonary cocci Medications: No Anticoagulant use? No Antiplatelet use Reviewed EMR for current medications Allergies:? Reviewed Social History: Drug Use: No Family History: There is no family history of premature cerebrovascular disease pertinent to this consultation ROS : 14 Points Review of Systems was performed and was negative except mentioned in HPI. Past Surgical History: There Is No Surgical History Contributory To Today?s Visit ? Examination: BP(163/75),?Pulse(75), 1A: Level of Consciousness - Alert; keenly responsive?+ 0 1B: Ask Month and Age - Could Not Answer Either Question Correctly?+ 2 1C: Blink Eyes & Squeeze Hands - Performs Both Tasks?+ 0 2: Test Horizontal Extraocular Movements - Normal?+ 0 3: Test Visual Ro - No Visual Loss?+ 0 4: Test Facial Palsy (Use Grimace if Obtunded) - Normal symmetry?+ 0 5A: Test Left Arm Motor Drift - No Drift for 10 Seconds?+ 0 5B: Test Right Arm Motor Drift - Drift, but doesn't hit bed?+ 1 6A: Test Left Leg Motor Drift - No Drift for 5 Seconds?+ 0 6B: Test Right Leg Motor Drift - Drift, but doesn't hit bed?+ 1 7: Test Limb Ataxia (FNF/Heel-Rivera) - No Ataxia?+ 0 8: Test Sensation - Normal; No sensory loss?+ 0 9: Test Language/Aphasia - Normal; No aphasia?+ 0 10: Test Dysarthria - Normal?+ 0 11: Test Extinction/Inattention - No abnormality?+ 0 NIHSS Score:?4 Pre-Morbid Modified [place] Scale: 1 Points = No significant disability despite symptoms; able to carry out all usual duties and activities Spoke with :?Dr. Cross This consult was conducted in real time using interactive audio and video technology. Patient was informed of the technology being used for this visit and agreed to proceed. Patient located in hospital and provider located at home/office setting. Patient is being evaluated for possible acute neurologic impairment and high probability of imminent or life-threatening deterioration. I spent total of 35 minutes providing care to this patient, including time for face to face visit via telemedicine, review of medical records, imaging studies and discussion of findings with providers, the patient and/or family. Dr Dwayne Theodore [facility] For Inpatient follow-up with [facility] physician please call [facility] at . As we are not an outpatient service for any post hospital discharge needs please contact the hospital for assistance. If you have any questions for the [facility] physicians or need to reconsult for clinical or diagnostic changes please contact us via [facility] at . Signature :?Dwayne Theodore ?
[2025-08-05 18:16] LABS: INR 1.1 (0.9-1.3); Prothrombin Time 11.5 Seconds (9.0-12.2)
[2025-08-05 18:29] LABS: Creatine Kinase 326 U/L (34-171)
--- NOTE | 2025-08-05 18:40 | ECHO_ITS ---
Transthoracic Echo Report Ht (in): 72 Wt (lb): 108 Exam Location: [facility] Status: Inpatient [employer]: Nay James Indications: Procedure Performed: BP: 147 / 89 HR: 72 MEASUREMENTS (Male / Female) Normal Values 2D ECHO LV Diastolic Diameter PLAX 3.6 cm 4.2 - 5.9 / 3.9 - 5.3 cm LV Systolic Diameter PLAX 2.3 cm IVS Diastolic Thickness 0.9 cm 0.6 - 1.0 / 0.6 - 0.9 cm LVPW Diastolic Thickness 1.3 cm 0.6 - 1.0 / 0.6 - 0.9 cm LV Relative Wall Thickness 0.6 LVOT Diameter 1.8 cm LA Volume Index 34.3 cm?/m? 16 - 28 cm?/m? Ascending Aorta Diameter 3.0 cm M-MODE AV Cusp Separation MM 0.9 cm DOPPLER AV Peak Velocity 331.0 cm/s AV Peak Gradient 43.8 mmHg AV Mean Gradient 23.0 mmHg AV Velocity Time Integral 69.7 cm LVOT Peak Velocity 61.6 cm/s LVOT Peak Gradient 1.5 mmHg LVOT Velocity Time Integral 12.0 cm LVOT Cardiac Index 1417.5 cm?/min?m? AV Area Cont Eq vti 0.4 cm? AV Area Cont Eq pk 0.5 cm? MV Area PHT 5.6 cm? Mitral E Point Velocity 47.5 cm/s Mitral A Point Velocity 86.3 cm/s Mitral E to A Ratio 0.6 TR Peak Velocity 216.7 cm/s TR Peak Gradient 18.8 mmHg PV Peak Velocity 93.7 cm/s PV Peak Gradient 3.5 mmHg FINDINGS Left Ventricle Normal left ventricular size, wall thickness, systolic function with no obvious regional wall motion abnormalities. Normal left ventricular diastolic filling pattern for age. The ejection fraction is visually estimated at 65 %. Right Ventricle The right ventricle is normal in size and systolic function. Left Atrium The left atrial cavity size is moderately increased. Right Atrium The right atrium is normal by two-dimensional imaging, color flow and Doppler imaging with no structural abnormalities, no thrombus formation present. Atrial Septum The interatrial septum appears normal with no evidence of a shunt. Aorta The aorta is normal by two-dimensional, color flow and Doppler interrogation. Mitral Valve Mild mitral annular calcification. Mild thickening of the mitral valve leaflets. Mild mitral regurgitation. Aortic Valve Moderate aortic valve sclerosis. Mild aortic valve regurgitation Tricuspid Valve The tricuspid valve is normal by two-dimensional, color flow and Doppler interrogation. There is mild to moderate tricuspid valve regurgitation. Pulmonic Valve The pulmonic valve is not well visualized. There is no significant pulmonic valve regurgitation. Vessels The pulmonary artery appears normal. The inferior vena cava pulmonary and hepatic veins appear normal. Pericardium The pericardium is normal by two-dimensional imaging. There is no significant pericardial effusion. CONCLUSIONS Indication: CVA Aortic root is normal in dimension. Aortic valve showed evidence of heavy calcification with moderate to severe calcific aortic stenosis aortic velocity 3.3 m/s. Peak aortic valve gradient 44 mmHg mean gradient of 23 mmHg. There is evidence of mild aortic valve regurgitation. Normal-sized left ventricle with normal left lateral wall motion ejection fraction of 65%. The right ventricle is normal in size and systolic function. Mild mitral annulus calcification and thickening of the mitral leaflets with mild mitral regurgitation. Mild tricuspid regurgitation with normal PA pressure. Pinky Lange (Electronically Signed) Final Date: 06 August 2025 17:12
--- NOTE | 2025-08-05 19:17 | ESHP_ITS ---
<Statement entered by Elder Beck MD - 08/06/25 08:22> Patient examined and case discussed with the team including attending physician. Note reviewed, I agree with the care plan as documented. Please refer to the note below for further details. - Elder Beck MD, PGY 3 Disclaimer: The document may contain phonetic/typographic errors due to voice recognition software. These errors are purely due to imperfections in the software program. 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 Unknown last well time, estimated about 12:30 PM the day of presentation. GCS 14 and route. Patient is chronically bedbound. On initial evaluation by the hospital team the patient is a poor historian. He seems to be able to comprehend what is being told and asked of him respond in his intended manner. The patient has right hemineglect and his upper extremity. He was admitted for CVA workup. ED course: * Vitals on arrival: BP 147/76, pulse 61, respiratory 19, temp 96.9, 100% on room air. * Significant labs: Hemoglobin 10.5, hematocrit 30.4, chloride 113, BUN 28, creatinine 1.9, alk phos 120, ammonia 38, creatinine kinase 326. Urine positive for 1+ blood, 17 RBCs. * Imaging: Chest x-ray showed mild to moderate vascular congestion. Head CT was negative for any acute hemorrhage, encephalomalacia in the posterior left parietal lobe, small old infarct in left cerebellar hemisphere in the right basal ganglia. EKG showed a sinus rhythm with a rate of 68 with a first- degree AV block. Head neck CTA was positive for moderate calcification of the carotid bifurcations but no significant stenosis, there were no cerebral large vessel artery occlusions or thrombi. * The patient was started on fluids and given ceftriaxone 1 g in the ED. Neurology was consulted. History: (Limited as the patient is a poor historian, the following history was collected via chart review) * Past medical history: Hypertension, pulmonary Coccidioides, chronic venous insufficiency, CKD stage III * Surgical history: Patient mentions that he has had a stent put in his heart. Date unknown. Review of Systems Review of Systems Narrative Review of Systems: Review of Systems: (Limited as the patient is a poor historian) * General: Denies fevers, chills. * GI: Denies nausea, vomiting, diarrhea, constipation, melena, or hematochezia. * Neuro: Admits to speech difficulty Exam Vital Signs Temp Pulse Resp BP Pulse Ox O2 Del Method 97.7 F 89 25 H 156/79 H 100 Room Air 08/05/25 18:00 08/05/25 19:12 08/05/25 19:12 08/05/25 18:00 08/05/25 18:00 08/05/25 18:00 Narrative Exam General: Thin elderly man. Temporal wasting. Patient understands what is being said to him but is unable to speak more than 1 word answers. Neurologic: Hemineglect in the right upper extremity. Hemineglect in the right lower extremity. HEENT: Tongue deviation to the right. Heart: Grade 3 systolic ejection murmur left sternal border. Regular rate and rhythm. Lungs: Clear to auscultation bilaterally with no wheezing or crackles. Abdomen: Soft, nondistended, nontender, positive bowel sounds. No guarding or rebound tenderness. Extremities: No edema. 2+ radial and dorsalis pedis pulses bilaterally. Skin: Warm. Dry. No rash or ecchymoses. Results: Labs 08/06/25 04:45 08/06/25 04:45 Labs: Short CBC 08/05/25 Range/Units 13:21 WBC 4.3 (3.8-10.6) Thou/mm3 Hgb 10.5 L (13.5-16.0) g/dL Hct 30.4 L (41.0-53.0) % Plt Count 132 L (140-440) Thou/mm3 BMP 08/05/25 13:21 Sodium 143 Potassium 4.9 Chloride 113 H Carbon Dioxide 21.0 BUN 28 H Creatinine 1.9 H Glucose 103 Calcium 9.7 Cardiac Enzymes 08/05/25 08/05/25 Range/Units 13:21 17:12 Total Creatine Kinase 326 H (34-171) U/L Troponin I < 0.020 (0.0-0.045) ng/mL Liver Function 08/05/25 Range/Units 13:21 Total Bilirubin 0.5 (0.3-1.2) mg/dL AST 29 (0-34) U/L ALT 12 (10-49) U/L Alkaline Phosphatase 120 H (46-116) U/L Albumin 3.9 (3.4-4.8) gm/dL Urine 08/05/25 Range/Units 13:45 Urine Color Lt-Yellow (Lt Yel-Yel) Urine Clarity Clear (Clear/Hazy) Urine pH 5.5 (5.0-7.0) Ur Specific [place] 1.012 (1.001-1.035) Urine Protein Trace (Neg - Trace) Urine Glucose (UA) Negative (Negative) Quality Measures Quality Measures sepsis Current suspected stage: ruled out Possible source: unknown Blood cultures ordered: yes Antibiotic ordered: No Advance care planning discussed with:: patient Medications Home Medications and Allergies Home Medications ?Medication ?Instructions ?Recorded ?Confirmed ?Type atenolol 50 mg tablet 50 mg PO DAILY ##0 12/23/10 08/06/25 History amlodipine 2.5 mg tablet 2.5 mg feeding tube HS 04/2108/06/25 History fluconazole 200 mg tablet 200 mg PO DAILY 04/21/24 History loperamide 2 mg capsule 2 mg PO BID PRN loose stool 08/06/25 08/06/25 History tamsulosin 0.4 mg capsule 0.4 mg PO Q24H 08/06/2507/10 History Allergies Allergy/AdvReac Type Severity Reaction Status Date / Time doxycycline Allergy Severe WHELPS Verified 10/31/23 16:23 IMMEDIATELY fibrinolysin AdvReac Severe Rash Verified 04/21/24 11:45 morphine AdvReac Severe PARANOID, Verified 04/21/24 11:45 HALLUCINATIONS Visit Medications Ondansetron HCl (Ondansetron Inj 2 Mg/Ml Inj 2 Ml) 4 mg IVP Q6H PRN; Protocol PRN Reason: NAUSEA OR VOMITING Stop: 09/04/25 18:37 Discontinued Medications Ceftriaxone Sodium/Dextrose (Rocephin/D5w 1gm Iv Premix) 1 gm in 50 mls @ 100 mls/hr IV STAT STA Stop: 08/05/25 14:09 Last Infusion: 08/05/25 14:43 Dose: Infused Lactated Ringer's (Lactated Ringers) 500 mls @ 500 mls/hr IV .Q1H ONE Stop: 08/05/25 14:39 Last Infusion: 08/05/25 16:01 Dose: Infused Assessment & Plan Plan Summary: 84-year male with past medical history of hypertension, 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 Patient was admitted for workup of his CVA workup. #Altered mental status #CVA * Last known well was around 12:30 PM the day of admission * Head CT showed a small old infarct in the left cerebellar hemisphere right basal ganglia. Encephalomalacia in the posterior left parietal lobe. No acute hemorrhage. Plan: * Neurology consulted * Brain MRI * Neurochecks Q4 * Bedside swallow eval * IV fluid maintenance * Aspiration precautions * DAPT: 300 mg clopidogrel bolus x 1 followed by 75 daily. Aspirin 325 mg bolus followed by 81 mg daily * Atorvastatin 80 mg at bedtime * Speech referral * PT referral #Normocytic anemia * MCV 97, hemoglobin 10.5, hematocrit 30.4 on arrival * On review of the patient's past visits, this appears to be a chronic condition * Considering the presence of old age, chronic bedbound, and chronic Coccidioides infection Plan: * No direct intervention at this time * Trend H&H with morning labs * Transfuse if hemoglobin below 7 #HIPOLITO on CKD stage III * BUN 28, creatinine 1.9 on arrival * Per chart review baseline creatinine is roughly 1.7 Plan: * Avoid nephrotoxic agents * Renally dose medications #Hypertension * Stage II hypertension 147/76 Plan: * Will allow for permissive hypertension over the first 24 hours * Pending med rec, consider resuming home amlodipine and atenolol following 24- hour window #Chronic Coccidioides pulmonary infection * Per chart review, patient is on fluconazole chronically Plan: * Consider restarting fluconazole after swallow eval passed Hospital Maintenance: DVT ppx: DAPT: Aspirin 81 mg daily, Plavix 75 mg daily Diet: N.p.o. for now, pending swallow eval IV lines: Peripheral IVs Code status: Full code, follow-up with point of contact Dispo: Patient will be admitted for CVA workup. Started on DAPT. Neurocheck Q4 on the telemetry floor. Being MRI brain and neurology consult. Patient was seen and discussed with my attending physician Dr. Bryan PÉREZ and my senior resident Dr. Kiran PÉREZ PGY-3. Marco Juan DO PGY-1. Attending Provider Attestation/Addendum I attest that I was physically present for the evaluation, physical examination, lab and imaging review of the patient with the residents. I discussed the case with the residents and agree with the findings and plans of care as documented above. After examination of the patient and review of the clinical data I feel that this patient needs admission to the hospital for further treatment/evaluation Farhat Adams MD
[2025-08-05] MEDS: CLOPIDOGREL BISULFATE 75 MG TABLET 300 MG PO (20:43)
[2025-08-05] MEDS: RINGERS LACTATED 1000 ML 1,000 ML 85 ML IV (20:46)
--- NOTE | 2025-08-05 22:58 | XR_ITS ---
Examination: CT brain head without contrast. 2-D sagittal coronal reconstructions Date and time of exam:July 28, 2025 1109 hrs., Comparison 08/05/2025 1323 hrs. CTDI: vol (mGy):50.2 DLP: (mGycm):963 Technique: Multiple CT axial sections of the brain have been obtained, 5 mm slice thickness. Contrast has not been administered. 2-D sagittal, coronal reconstructions have been obtained Low dose protocols were performed. One or more of the following dose reduction techniques were used; automated exposure control, adjustment of the mA and/or KV according to patient size, use of iterative reconstruction technique. Findings: No significant ventricular enlargement. Intra-axial or extra-axial hemorrhage density is not seen. No mass effect or midline shift Basal cisterns are not remarkable. Fourth ventricle is midline. Cranial vault intact. Impression: No interval acute hemorrhage, mass effect or midline shift
[2025-08-05] MEDS: ATORVASTATIN CALCIUM 20 MG TABLET 40 MG PO (23:39)
--- NOTE | 2025-08-05 23:47 | PD.RESEVENT ---
Documentation for date of: 08/05/25 Event Note Event Note: Rapid response was called at 22:42 for change in NIHSS stroke called. On arrival nurse report RR called for NIHSS scale score from 4 to 7. Upon evaluation patient was sitting comfortably in bed, vitals were blood pressure 139/88, temperature 96.9, RR's 22, O2 sat 100% on room air. Patient doesn't appear in distress at this moment. Per RN and at at bedside patient is unable to articulate words and responds to questions. Per primary team at signout I was made aware that patient might have had Broca's aphasia upon presentation. Stroke alert initiated and teleneuro was consulted and he recommends head CT and EEG. Will continue to monitor for any change in NIHSS scale. Patient seen and assessed under supervision of attending physician Dr.Alhalaibeh Cindy Callahan MD PGY-1, Internal Medicine Please note: this document was transcribed using voice recognition technology; minor inaccuracies may be present.
[2025-08-06] VITALS (9 sets, daily range): BP systolic 118–147; BP diastolic 74–89; PULSE 64–90; RESP 12–100; TEMP 36–36.6; O2SAT 98–100; BMI 16.9
--- NOTE | 2025-08-06 | XR_ITS ---
Examinations: MRI Brain without intravenous contrast. MRA brain without intravenous contrast. MRA carotids without intravenous contrast 3-D vascular reconstructions Date and time of exam: August 06, 2025, 0803 hours INDICATIONS: Stroke alert 07/28/2025, onset focal neurologic deficit, altered mental status Technique: Multiple axial and sagittal images of the brain have been obtained MRA brain carotid images without contrast obtained, including 3-D postprocessing, vascular maximum intensity projection images Findings: [place] is not enlarged. The optic chiasm and infundibular stalk are not remarkable. Prepontine and interpeduncular cisterns are not enlarged. No localized enlargement of the medulla or lubna. Fourth ventricle and cerebellar tonsils normal in position. Subacute hemorrhage is not seen. Fourth ventricle is midline. Mass in the cerebellopontine angle region is not evident. 7th and 8th nerve complexes exhibits symmetry. Globes are symmetrical with no retro-orbital mass. Increased white matter signal prominent Diffusion-weighted images demonstrate multiple tiny foci restricted diffusion including left basal ganglia, left occipital lobe, posterior left parietal lobe high left parietal lobe, the largest in the high left parietal lobe is 7 mm Mass-effect upon the ventricular system is not identified. MRA carotid images no critical carotid stenoses. 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
--- NOTE | 2025-08-06 00:37 | ESCONSULT_ITS ---
Tele Neuro Consultation Consultation Date 08/06/25 Most Recent Vital Signs Last Vital Signs Temp 96.9 F 08/05/25 23:05 Pulse 77 08/06/25 00:06 Resp 22 H 08/06/25 00:06 BP 139/88 H 08/05/25 23:05 Pulse Ox 100 08/05/25 23:05 O2 Del Method Room Air 08/05/25 21:13 Laboratory-Coagulation Panel PT 11.5 Seconds (9.0-12.2) 08/05/25 17:22 INR 1.1 (0.9-1.3) 08/05/25 17:22 APTT 23.4 Seconds (22.0-36.0) 08/05/25 13:21 Consultation Narrative [facility] TeleNeurology Consult Services Patient Name:???Escobar Perez Date of :???1940 Date of Service:???08/05/2025 22:46:14 Diagnosis:?I63.89 - Cerebrovascular accident (CVA) due to other mechanism ([facility]) Impression: ?This is an 84 yo man presenting for altered mental status, weakness on the right. He does seem to have worsening aphasia since arrival. Last normal unclear. Prior imaging was negative for LVO. He will need a brain MRI to assess for stroke. Agree with dual antiplatelet as recommended before. ? ?Can also consider EEG, though low suspicion of seizures. ? Our recommendations are outlined below. Recommendations: ? Stroke/Telemetry Floor ? Neuro Checks (Q4) ? Bedside Swallow Eval ? DVT Prophylaxis ? IV Fluids, Normal Saline ? Head of Bed 30 Degrees ? Euglycemia and Avoid Hyperthermia (PRN Acetaminophen) ? Initiate dual antiplatelet therapy with Aspirin 81 mg daily and Clopidogrel 75 mg daily. Advanced Imaging: Advanced Imaging Deferred because: Advanced Imaging not obtained at this time. Reason: already done earlier, LKN unclear but seems like well over 24h ago Metrics: Last Known Well: Unknown Dispatch Time: 08/05/2025 22:46:14 Initial Response Time: 08/05/2025 22:48:55Symptoms: AMS, weakness. Initial patient interaction: 08/05/2025 22:52:32 NIHSS Assessment Completed: 08/05/2025 23:00:36Patient is not a candidate for Thrombolytic. Thrombolytic Medical Decision: 08/05/2025 23:00:37Patient was not deemed candidate for Thrombolytic because of following reasons: LKW outside 4.[address] Head: CT head unremarkable for acute infarction or hemorrhage per Radiology: old left parietal infarct, no acute pathology Primary Provider Notified of Diagnostic Impression and Management Plan on: 08/05/2025 22:59:46 Spoke With: Dr. Suarez Able to Reach 08/05/2025 22:59:46 History of Present Illness:Patient is a 84 year old Male. Inpatient stroke alert was called for symptoms of AMS, weakness. This is an 84 yo man who is currently admitted for evaluation of altered mental status and rule out stroke . He presented earlier by EMS. We do not have a last known normal time. A stroke alert is called because nursing reports a worsening in the NIHSS compared to what they were told. Nursing states NIHSS was 4 in the ER and is 7 on arrival to the floor. The change is due to aphasia. Per the H&P, he could not speak more than one word answers to the admitting physician. He was seen by neurology in the ER who also gave him NIHSS of 4. A head CT was negative for acute pathology and a CTA H/N was neg for LVO. Notable labs: BUN 28, creatinine 1.9, NH3 36. Past Medical History: ?Hypertension Medications: Anticoagulant use:??Unknown Antiplatelet use:?Unknown Reviewed EMR for current medications Allergies:? Allergies Unable To Obtain Due To:?Patient Cannot Speak Social History: Unable To Obtain Due To Patient Status :?Patient Cannot Speak Family History: Family History Cannot Be Obtained Because:Patient Cannot Speak ROS :?ROS Cannot Be Obtained Because:? Patient Cannot Speak Past Surgical History: Past Surgical History Cannot Be Obtained Because: Patient Cannot Speak Examination: BP(139/88),?Pulse(72),?Blood Glucose(78) 1A: Level of Consciousness - Alert; keenly responsive?+ 0 1B: Ask Month and Age - Aphasic?+ 2 1C: Blink Eyes & Squeeze Hands - Performs 1 Task?+ 1 2: Test Horizontal Extraocular Movements - Normal?+ 0 3: Test Visual Ro - No Visual Loss?+ 0 4: Test Facial Palsy (Use Grimace if Obtunded) - Normal symmetry?+ 0 5A: Test Left Arm Motor Drift - No Drift for 10 Seconds?+ 0 5B: Test Right Arm Motor Drift - Drift, but doesn't hit bed?+ 1 6A: Test Left Leg Motor Drift - No Drift for 5 Seconds?+ 0 6B: Test Right Leg Motor Drift - Drift, but doesn't hit bed?+ 1 7: Test Limb Ataxia (FNF/Heel-Rivera) - No Ataxia?+ 0 8: Test Sensation - Normal; No sensory loss?+ 0 9: Test Language/Aphasia - Severe Aphasia: Fragmentary Expression, Inference Needed, Cannot Identify Materials?+ 2 10: Test Dysarthria - Normal?+ 0 11: Test Extinction/Inattention - No abnormality?+ 0 NIHSS Score:?7 Pre-Morbid Modified Francoise Scale: Unable to assess Spoke with :?Dr. Suarez This consult was conducted in real time using interactive audio and video technology. Patient was informed of the technology being used for this visit and agreed to proceed. Patient located in hospital and provider located at home/office setting. Patient is being evaluated for possible acute neurologic impairment and high probability of imminent or life-threatening deterioration. I spent total of 35 minutes providing care to this patient, including time for face to face visit via telemedicine, review of medical records, imaging studies and discussion of findings with providers, the patient and/or family. Dr Aiden eWsley [facility] For Inpatient follow-up with [facility] physician please call [facility] at . As we are not an outpatient service for any post hospital discharge needs please contact the hospital for assistance. If you have any questions for the [facility] physicians or need to reconsult for clinical or diagnostic changes please contact us via [facility] at . Signature :Edward Wesley
--- NOTE | 2025-08-06 01:32 | RESP.EEG ---
EEG completed and ready to be read
[2025-08-06 05:55] LABS: Basophils # (Auto) 0.0 Thou/mm3 (0.0-0.2); Basophils % (Auto) 0 % (0-2.5); Eosinophils # (Auto) 0.1 Thou/mm3 (0.0-0.5); Eosinophils % (Auto) 3 % (0-10); Hematocrit 33.0 % (41.0-53.0); Hemoglobin 11.4 g/dL (13.5-16.0); Immature Granulocytes Auto 0.02 Thou/mm3 (0.00-0.00); Lymphocytes # (Auto) 0.8 Thou/mm3 (1.0-4.8); Lymphocytes % (Auto) 22 % (10-50); Mean Corpuscular HGB Conc 34.5 g/dl (31.0-37.0); Mean Corpuscular Hemoglobin 33.0 pg (25.0-35.0); Mean Corpuscular Volume 96 fL (80-100); Monocytes # (Auto) 0.7 Thou/mm3 (0.0-0.8); Monocytes % (Auto) 18 % (0-12); Neutrophils # (Auto) 2.1 Thou/mm3 (1.8-7.7); Neutrophils % (Auto) 57 % (37-80); Nucleated Red Blood Cell # 0.00 Thou/mm3 (0.00-0.00); Nucleated Red Blood Cell % 0 /100 WBC (0); Platelet Count 134 Thou/mm3 (140-440); RDW Standard Deviation 47.5 fL (35.1-43.9); Red Blood Count 3.45 Miln/mm3 (4.50-5.90); White Blood Count 3.7 Thou/mm3 (3.8-10.6)
--- NOTE | 2025-08-06 06:00 | PC.NURSE ---
PATIENT'S SON ,HOSSEIN KERNS.CONTACTED THROUGH PHONE OF PATIENT'S HOME MEDS.PROMISE TO BRING HOME MEDS WHEN HE VISIT TODAY.
[2025-08-06 06:20] LABS: Iron 43 mcg/dL (65-175); Percent Iron Saturation 22 % (20-55); Total Iron Binding Capacity 187 mcg/dL (250-425); Unsaturated Iron Binding 144 (225-295)
[2025-08-06 06:27] LABS: Alanine Aminotransferase 13 U/L (10-49); Albumin, Serum 3.6 gm/dL (3.4-4.8); Albumin/Globulin Ratio 1.7 (1.2-2.2); Alkaline Phosphatase 114 U/L (46-116); Anion Gap 11 (7-16); Aspartate Amino Transferase 33 U/L (0-34); BUN/Creatinine Ratio 18 Ratio (12-20); Bilirubin,Total 0.4 mg/dL (0.3-1.2); Blood Urea Nitrogen 28 mg/dL (9-23); Calcium 9.4 mg/dL (8.3-10.6); Calcium (Corrected) 9.7 mg/dL (8.5-10.1); Carbon Dioxide 21.3 mMol/L (20.0-31.0); Chloride 110 mMol/L (98-107); Creatinine (Component) 1.6 mg/dL (0.6-1.3); Globulin 2.1 gm/dL (2.3-3.5); Glucose 70 mg/dL (74-106); Magnesium 2.0 mg/dL (1.6-2.6); Osmolality,Calculated 286 (275-295); Phosphorous 3.0 mg/dL (2.4-5.1); Potassium 4.3 mMol/L (3.4-5.1); Sodium 142 mMol/L (136-145); Total Protein 5.7 gm/dL (5.7-8.2); eGFR 42 See Note
[2025-08-06] MEDS: ASPIRIN EC 81 MG TABEC PO (08:37)
[2025-08-06] MEDS: CLOPIDOGREL BISULFATE 75 MG TABLET PO (08:37)
[2025-08-06 08:48] LABS: Cardiac Risk Estimate 2.9 RATIO (4.0-6.7); Cholesterol 115 mg/dL (132-200); HDL Cholesterol 39 mg/dL (40-60); LDL Cholesterol,Calculated 57 mg/dL (0-130); Triglycerides 95 mg/dL (30-150)
[2025-08-06 08:49] LABS: Glucose Estimated Average 105 mg/dL (80-131); Hemoglobin A1C 5.3 % Hgb (4.8-6.0)
--- NOTE | 2025-08-06 10:05 | PC.NURSE ---
Senior Electronics Design Engineer: Noted pt without VTE prophylaxis ordered - spoke to Dr Mauricio Santos - will order.
[2025-08-06 10:45] LABS: Ferritin 146 ng/mL (10.5-307.3)
--- NOTE | 2025-08-06 13:00 | PC.SS ---
MANAGER SPECIAL EVENTS confirmed with patient's family preferred Acute Rehab setting is [facility].
--- NOTE | 2025-08-06 13:12 | XR_ITS ---
Examination: Abdomen sonogram, Limited Date and time of exam: August 06, 2025, 1336 hours INDICATIONS: Cirrhosis, increasing distention this week Technique: Real-time avitia scale transabdominal sonographic images of the upper abdomen obtained. Findings: No ascites IMPRESSION: No ascites
--- NOTE | 2025-08-06 13:26 | PC.SS ---
EDGERMAN conducted bedside contact with the patient conduct initial assessment and to discuss discharge planning.? At bedside with patient was son, Nickolas Perez .? Information obtained from the patient?s son.? Patient admitted for CVA.? Patient resides at home with son.? Patient does not utilize any form of DME to assist with ambulation.? Patient does not utilize home oxygen.? Prior to current admission patient able to complete ADL?s independently, to include operating vehicle.? Patient?s surrogate medical decision maker is son, Nickolas Perez.? Patient?s PCP is Dr. De Leon.? Patient?s digital asset specialist is Dr. Del Rosario.? Patient does not participate with dialysis.? Plan is for the patient to transition to acute rehabilitation.? No preferred facility identified.? EDGERMAN informed son that patient will need a PT evaluation and meet criteria for acute rehabilitation placement.? Patient acknowledged need for authorization and possession of criteria for placement. ?technical services assistant will arrange transportation on behalf of the patient.? No further discharge needs identified by the patient?s son.? No further intervention required at this time, social media executive will be available to address any further concerns.? Next of Kin: Nickolas Perez D/C Plan: SNF
--- NOTE | 2025-08-06 13:35 | PCS.ST ---
Swallow Evaluation completed. No dysphagia. Speech Evaluation initiated. See reports for details.
[2025-08-06] MEDS: HEPARIN SOD INJ 5000 UNIT/ML VIAL SC ×2 (13:45→21:05)
--- NOTE | 2025-08-06 14:52 | ESPR_ITS ---
<Statement entered by Charles Santos MD - 08/06/25 15:25> Overnight rapid response called for change in NIHSS and teleneurology was consulted. Recommended CT head and EEG, CT head showed no interval changes but MRI and MRA brain showed multiple, acute embolic appearing infarcts in the left basal ganglia, left occipital lobe, and left parietal lobe. Currently on DAPT and statin. Family updated on current findings. Pending neurology in house recommendations, echo with bubble study, and anticipate patient may need JULIAN for further evaluation of MRI findings. Per PT, patient will benefit from SNF and passed speech evaluation. ----- Note reviewed and agree with care plan as documented. Please refer to the note below for further details. Plan discussed with attending physician Dr. Bryan Santos MD PGY-2 Internal Medicine Documentation for date of: 08/06/25 Subjective Subjective Interval history: Patient was seen and examined at bedside. Patient was noted to make inappropriate responses to questions asked from hand (3). He open his eyes to speech (3) and withdraws from pain (4) 4 for a total GCS 10 score. Patient was accompanied by family members at bedside who stated that patient is far from baseline. That he had been an independent individual able to walk and drive car. He was noted to be slower out of speech a few days ago. Patient was on a rapid response called overnight for change in NIHSS score from 4-7 attributable to expressive aphasia and teleneurology was consulted which recommended EEG, and repeat CT head, and MRI of brain. Exam Vital Signs Temp Pulse Resp BP Pulse Ox O2 Del Method 97.0 F 74 13 129/81 99 Room Air 08/06/25 12:00 08/06/25 12:00 08/06/25 12:00 08/06/25 12:00 08/06/25 12:08/06/25 08:00 Narrative Exam General: Thin elderly man. Temporal wasting. Patient understands what is being said to him but is unable to speak more than 1 word answers. Neurologic: Hemineglect in the right upper extremity. Hemineglect in the right lower extremity. HEENT: Tongue deviation to the right. Heart: Grade 3 systolic ejection murmur left sternal border. Regular rate and rhythm. Lungs: Clear to auscultation bilaterally with no wheezing or crackles. Abdomen: Soft, nondistended, nontender, positive bowel sounds. No guarding or rebound tenderness. Extremities: No edema. 2+ radial and dorsalis pedis pulses bilaterally. Skin: Warm. Dry. No rash or ecchymoses. Objective Labs 08/06/25 04:45 08/06/25 04:45 Labs: Laboratory Results - last 24 hr 08/05/25 08/05/25 08/05/25 13:45 17:12 17:22 WBC RBC Hgb Hct MCV MCH MCHC RDW Std Deviation Plt Count Neut % (Auto) Lymph % (Auto) [place] % (Auto) Eos % (Auto) Baso % (Auto) Neut # (Auto) Lymph # (Auto) [place] # (Auto) Eos # (Auto) Baso # (Auto) Immature Gran # (Auto) Absolute Nucleated RBC Immature Gran % Nucleated RBC % PT 11.5 INR 1.1 Sodium Potassium Chloride Carbon Dioxide Anion Gap BUN Creatinine Estim Creat Clear Calc eGFR BUN/Creatinine Ratio Glucose Estimated Ave Glu mg/dL Hemoglobin A1c Calculated Osmolality Calcium Corrected Calcium Phosphorus Magnesium Iron TIBC Iron Saturation Unsat Iron Binding Ferritin Total Bilirubin AST ALT Alkaline Phosphatase Total Creatine Kinase 326 H Total Protein Albumin Globulin Albumin/Globulin Ratio Triglycerides Cholesterol LDL Cholesterol, Calc HDL Cholesterol Cholesterol/HDL Ratio Ur Collection Type Clean Catch Urine Color Lt-Yellow Urine Clarity Clear Urine pH 5.5 Ur Specific [place] 1.012 Urine Protein Trace Urine Glucose (UA) Negative Urine Ketones Negative Urine Blood 1+ A Urine Nitrite Negative Urine Bilirubin Negative Urine Urobilinogen (Auto) Negative Ur Leukocyte Esterase Negative Urine RBC 17 H Urine WBC < 1 Ur Squamous Epith Cells < 1 Urine Bacteria None 08/06/25 04:45 WBC 3.7 L RBC 3.45 L Hgb 11.4 L Hct 33.0 L MCV 96 MCH 33.0 MCHC 34.5 RDW Std Deviation 47.5 H Plt Count 134 L Neut % (Auto) 57 Lymph % (Auto) 22 [place] % (Auto) 18 H Eos % (Auto) 3 Baso % (Auto) 0 Neut # (Auto) 2.1 Lymph # (Auto) 0.8 L [place] # (Auto) 0.7 Eos # (Auto) 0.1 Baso # (Auto) 0.0 Immature Gran # (Auto) 0.02 H Absolute Nucleated RBC 0.00 Immature Gran % 1 H Nucleated RBC % 0 PT INR Sodium 142 Potassium 4.3 D Chloride 110 H Carbon Dioxide 21.3 Anion Gap 11 BUN 28 H Creatinine 1.6 H Estim Creat Clear Calc Not Performed. eGFR 42 L BUN/Creatinine Ratio [address] Glu mg/dL 105 Hemoglobin A1c 5.3 Calculated Osmolality 286 Calcium 9.4 Corrected Calcium 9.7 Phosphorus 3.0 Magnesium 2.0 Iron 43 L TIBC 187 L Iron Saturation 22 Unsat Iron Binding 144 L Ferritin 146 Total Bilirubin 0.4 AST 33 ALT 13 Alkaline Phosphatase 114 Total Creatine Kinase Total Protein 5.7 Albumin 3.6 Globulin 2.1 L Albumin/Globulin Ratio 1.7 Triglycerides 95 Cholesterol 115 L LDL Cholesterol, Calc 57 HDL Cholesterol 39 L Cholesterol/HDL Ratio 2.9 L Ur Collection Type Urine Color Urine Clarity Urine pH Ur Specific [place] Urine Protein Urine Glucose (UA) Urine Ketones Urine Blood Urine Nitrite Urine Bilirubin Urine Urobilinogen (Auto) Ur Leukocyte Esterase Urine RBC Urine WBC Ur Squamous Epith Cells Urine Bacteria Quality Measures Quality Measures sepsis Current suspected stage: ruled out Possible source: unknown Blood cultures ordered: yes Antibiotic ordered: No Advance care planning discussed with:: patient and legal surragate Assessment & Plan Assessment Current Active Medications: Generic Name Dose Route Start Last Admin Trade Name Freq PRN Reason Stop Dose Admin Acetaminophen 650 mg 08/05/25 19:48 Acetaminophen 325 Mg Tablet PO 09/04/25 19:47 Q6HR PRN Fever > 99.9 Aspirin 81 mg 08/06/25 09:00 08/06/25 08:37 Aspirin Ec 81 Mg Tabec PO 09/05/25 08:59 81 mg DAILY MARCELLA Administration Atorvastatin Calcium 40 mg 08/05/25 21:00 08/05/25 23:39 Atorvastatin Calcium 20 Mg Tablet PO 09/04/25 20:59 40 mg HS MARCELLA Administration Clopidogrel Bisulfate 75 mg 08/06/25 09:00 08/06/25 08:37 Clopidogrel Bisulfate 75 Mg Tablet PO 09/05/25 08:59 75 mg DAILY MARCELLA Administration Heparin Sodium (Porcine) 5,000 unit 08/06/25 14:00 08/06/25 13:45 Heparin Sod Inj 5000 Unit/Ml Vial SC 08/20/25 13:59 5,000 unit Q8HR MRACELLA Administration Ondansetron HCl 4 mg 08/05/25 18:38 Ondansetron Inj 2 Mg/Ml Inj 2 Ml IVP 09/04/25 18:37 Q6H PRN NAUSEA OR VOMITING Protocol Plan Summary: 84-year male with past medical history of hypertension, 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 Patient was admitted for workup of his CVA workup. #Altered mental status #CVA * Last known well was around 12:30 PM the day of admission * Head CT showed a small old infarct in the left cerebellar hemisphere right basal ganglia. Encephalomalacia in the posterior left parietal lobe. No acute hemorrhage. * CT head at 11PM 08/05: No interval acute hemorrhage, mass effect or midline shift * The patient is out of the window for thrombolytic administration and CT angiogram did not appear to demonstrate evidence of large vessel occlusion. * MRI showed Multiple embolic type acute infarcts left basal ganglia, left occipital lobe, left parietal lobe * speech evaluation did not demonstrate dysphagia. Noted aphasia. * PT recommended SNF placement at discharge. Plan: * Neurology consulted, appreciate recs * Neurochecks Q4 * IV fluid maintenance * Aspiration precautions * DAPT: 300 mg clopidogrel bolus x 1 followed by 75 daily. Aspirin 325 mg bolus followed by 81 mg daily * Atorvastatin 80 mg at bedtime * Speech referral * PT referral * echo with bubble study * Head of Bed 30 Degrees #Normocytic anemia * MCV 97, hemoglobin 10.5, hematocrit 30.4 on arrival * On review of the patient's past visits, this appears to be a chronic condition * Considering the presence of old age, chronic bedbound, and chronic Coccidioides infection Plan: * No direct intervention at this time * Trend H&H with morning labs * Transfuse if hemoglobin below 7 #HIPOLITO on CKD stage III * BUN 28, creatinine 1.9 on arrival * Per chart review baseline creatinine is roughly 1.7 Plan: * Avoid nephrotoxic agents * Renally dose medications #Hypertension * Stage II hypertension 147/76 Plan: * Will allow for permissive hypertension over the first 24 hours * Pending med rec, consider resuming home amlodipine and atenolol following 24- hour window #Chronic Coccidioides pulmonary infection * Per chart review, patient is on fluconazole chronically Plan: * Consider restarting fluconazole after swallow eval passed Hospital Maintenance: DVT ppx: DAPT: Aspirin 81 mg daily, Plavix 75 mg daily Diet: renal IV lines: Peripheral IVs Code status: Full code, follow-up with point of contact Dispo: Patient will be admitted for CVA workup. Started on DAPT. Neurocheck Q4 on the telemetry floor. Being MRI brain and neurology consult. pending in house neurology recommendations. This case was discussed with my attending physician, Dr. Adams, and senior resident, Dr Danielle Martínez. Malcom Delgado, DO PGY I Attending Provider Attestation/Addendum I attest that I was physically present for the evaluation, physical examination, lab and imaging review of the patient with the residents. I discussed the case with the residents and agree with the findings and plans of care as documented above. Patient seen and examined at bedside this morning. Overnight, rapid response was called as patient had change in his NIHSS score and teleneurology was consulted. Patient had a repeat head CT, did not show any interval changes. At bedside, patient continues to be confused, appears slightly more sleepy compared to yesterday, opens his eyes on calling, but confused and unable to follow all commands. Brain MRI with MRA was completed, which showed multiple acute appearing infarcts in left basal ganglia, left occipital lobe and left parietal lobes. Continues to be on dual antiplatelets and statin. Awaiting neurology recommendation, echocardiography. Physical therapy recommended SNF placement, speech therapy also evaluated the patient, recommended renal diet. Vital signs and lab results are stable. Farhat Adams MD
[2025-08-06] MEDS: ATORVASTATIN CALCIUM 20 MG TABLET 40 MG PO (20:18)
--- NOTE | 2025-08-06 22:46 | ESPR_ITS ---
Documentation for date of: 08/06/25 Subjective Subjective Interval history: Patient was seen in telemetry today at the bedside. Continues to have global aphasia and a right hemiparesis. Exam - Neurology Vital Signs Temp Pulse Resp BP Pulse Ox O2 Del Method 97.8 F 90 13 118/84 98 Room Air 08/06/25 20:00 08/06/25 20:00 08/06/25 20:00 08/06/25 20:00 08/06/25 20:00 08/06/25 20:00 Narrative Exam GENERAL APPEARANCE: Well hydrated, well-nourished in no acute distress. HEENT: Normocephalic, atraumatic, extraocular movements intact. Pupils: Equal reacting to light NECK: Supple, no JVD or bruits. CARDIOVASULAR: Heart: S1, S2 heard, regular without S3-S4 or murmur no rubs or gallops. LUNGS/CHEST: Clear to auscultation bilaterally. No rails, rhonchi, or wheezing. Normal inspection. ABDOMEN: Soft, nontender, with normal bowel sounds. No pulsatile masses. No rebound, rigidity, or guarding. Normal inspection and palpation. EXTREMITIES: Normal inspection and palpation. No edema, clubbing or cyanosis. SKIN: Warm and dry without rashes. Normal inspection. MUSCULOSKELETAL: No cervical, thoracic, lumbar or midline bony tenderness. Normal inspection. NEURO: Alert, awake and aphasic. Cranial nerves: II through XII grossly intact. Speech and language: Aphasic. Motor system: Tone and bulk: Normal: Strength: Significant right with neglect. deep tendon reflexes: 2+ bilaterally symmetrical. Plantar reflex: Downgoing bilaterally. Rest of the exam: Limited, not able to test secondary to language impairment. no signs of meningeal irritation noted. PSYCHIATRIC: Normal mood and affect. Objective Labs 08/06/25 04:45 08/06/25 04:45 Labs: Laboratory Results - last 24 hr 08/06/25 04:45 WBC 3.7 L RBC 3.45 L Hgb 11.4 L Hct 33.0 L MCV 96 MCH 33.0 MCHC 34.5 RDW Std Deviation 47.5 H Plt Count 134 L Neut % (Auto) 57 Lymph % (Auto) 22 [place] % (Auto) 18 H Eos % (Auto) 3 Baso % (Auto) 0 Neut # (Auto) 2.1 Lymph # (Auto) 0.8 L [place] # (Auto) 0.7 Eos # (Auto) 0.1 Baso # (Auto) 0.0 Immature Gran # (Auto) 0.02 H Absolute Nucleated RBC 0.00 Immature Gran % 1 H Nucleated RBC % 0 Sodium 142 Potassium 4.3 D Chloride 110 H Carbon Dioxide 21.3 Anion Gap 11 BUN 28 H Creatinine 1.6 H Estim Creat Clear Calc Not Performed. eGFR 42 L BUN/Creatinine Ratio 18 [address] Glu mg/dL 105 Hemoglobin A1c 5.3 Calculated Osmolality 286 Calcium 9.4 Corrected Calcium 9.7 Phosphorus 3.0 Magnesium 2.0 Iron 43 L TIBC 187 L Iron Saturation 22 Unsat Iron Binding 144 L Ferritin 146 Total Bilirubin 0.4 AST 33 ALT 13 Alkaline Phosphatase 114 Total Protein 5.7 Albumin 3.6 Globulin 2.1 L Albumin/Globulin Ratio 1.7 Triglycerides 95 Cholesterol 115 L LDL Cholesterol, Calc 57 HDL Cholesterol 39 L Cholesterol/HDL Ratio 2.9 L Assessment & Plan Assessment and plan (1) Acute CVA (cerebrovascular accident): Status: Acute Assessment and plan: Presented with aphasia and right hemiplegia MRI brain confirmed multiple acute infarct in the left cerebral hemisphere involving basal ganglia parietal and occipital lobe Echocardiogram: ejection action of 65% Continue aspirin, Plavix for 21 days followed by Plavix alone and statin. Consider doing transesophageal echocardiogram to look for cardiac causes for embolic type infarct. Continue with the speech therapy and occupational and physical therapy. (2) Hypertension: Status: Chronic
[2025-08-07] VITALS (10 sets, daily range): BP systolic 113–141; BP diastolic 71–89; PULSE 70–98; RESP 11–97; TEMP 35.9–36.7; O2SAT 93–97; BMI 17.0
[2025-08-07 05:35] LABS: Basophils # (Auto) 0.0 Thou/mm3 (0.0-0.2); Basophils % (Auto) 1 % (0-2.5); Eosinophils # (Auto) 0.1 Thou/mm3 (0.0-0.5); Eosinophils % (Auto) 3 % (0-10); Hematocrit 32.0 % (41.0-53.0); Hemoglobin 10.8 g/dL (13.5-16.0); Immature Granulocytes Auto 0.02 Thou/mm3 (0.00-0.00); Lymphocytes # (Auto) 0.9 Thou/mm3 (1.0-4.8); Lymphocytes % (Auto) 24 % (10-50); Mean Corpuscular HGB Conc 33.8 g/dl (31.0-37.0); Mean Corpuscular Hemoglobin 32.4 pg (25.0-35.0); Mean Corpuscular Volume 96 fL (80-100); Monocytes # (Auto) 0.6 Thou/mm3 (0.0-0.8); Monocytes % (Auto) 16 % (0-12); Neutrophils # (Auto) 2.0 Thou/mm3 (1.8-7.7); Neutrophils % (Auto) 55 % (37-80); Nucleated Red Blood Cell # 0.00 Thou/mm3 (0.00-0.00); Nucleated Red Blood Cell % 0 /100 WBC (0); Platelet Count 154 Thou/mm3 (140-440); RDW Standard Deviation 47.5 fL (35.1-43.9); Red Blood Count 3.33 Miln/mm3 (4.50-5.90); White Blood Count 3.6 Thou/mm3 (3.8-10.6)
[2025-08-07] MEDS: HEPARIN SOD INJ 5000 UNIT/ML VIAL SC ×3 (05:41→21:15)
[2025-08-07 06:05] LABS: Alanine Aminotransferase 14 U/L (10-49); Albumin, Serum 3.5 gm/dL (3.4-4.8); Albumin/Globulin Ratio 1.7 (1.2-2.2); Alkaline Phosphatase 114 U/L (46-116); Anion Gap 13 (7-16); Aspartate Amino Transferase 29 U/L (0-34); BUN/Creatinine Ratio 14 Ratio (12-20); Bilirubin,Total 0.5 mg/dL (0.3-1.2); Blood Urea Nitrogen 24 mg/dL (9-23); Calcium 9.3 mg/dL (8.3-10.6); Calcium (Corrected) 9.7 mg/dL (8.5-10.1); Carbon Dioxide 22.4 mMol/L (20.0-31.0); Chloride 109 mMol/L (98-107); Creatinine (Component) 1.7 mg/dL (0.6-1.3); Estimated Creatinine Clearance 23.5 mL/min (>60); Globulin 2.1 gm/dL (2.3-3.5); Glucose 89 mg/dL (74-106); Magnesium 1.8 mg/dL (1.6-2.6); Osmolality,Calculated 289 (275-295); Phosphorous 3.4 mg/dL (2.4-5.1); Potassium 3.9 mMol/L (3.4-5.1); Sodium 144 mMol/L (136-145); Total Protein 5.6 gm/dL (5.7-8.2); eGFR 39 See Note
--- NOTE | 2025-08-07 08:51 | PC.SS ---
Acute Rehab referral submitted on [facility]. Response is pending.
--- NOTE | 2025-08-07 09:05 | ESPR_ITS ---
<Statement entered by Charles Santos MD - 08/07/25 14:26> No acute overnight events. Seen and examined at bedside and patient able to follow some commands but continues to be aphasic but today was able to communicate that he needed to use the restroom. Reached out to cardiology team as JULIAN is being requested by neurology and will place patient NPO after midnight for planned JULIAN in upcoming days. Will continue aspirin, plavix, and statin for confirmed strokes, neurology continues to follow and appreciate recommendations. Continue speech therapy, which patient passed without issues swallowing, and continue physical therapy as well, who is recommending acute rehab placement. ----- Note reviewed and agree with care plan as documented. Please refer to the note below for further details. Plan discussed with attending physician Dr. Juan Ramon Santos MD PGY-2 Internal Medicine Documentation for date of: 08/07/25 Subjective Subjective Interval history: Patient seen and examined at bedside. Right-sided hemineglect has essentially vanished. Still continues to have one-word answers unable to say what he wants to say but aware of this. Had a normal EEG earlier this morning.? Abdominal ultrasound yesterday was negative.? Hemoglobin 10.8 and stable, blood chemistry stable, BUN 24, creatinine 1.7.? Vitals significant for stage I hypertension 137/89, tachypneic respiratory rate 22, satting at 93% on room air. Brain MRI shows multiple embolic infarcts. Cardiology consulted. Continuing DAPT. Exam Vital Signs Temp Pulse Resp BP Pulse Ox O2 Del Method 97.0 F 98 23 H 125/76 96 Room Air 08/07/25 08:00 08/07/25 08:00 08/07/25 08:00 08/07/25 08:00 08/07/25 08:00 08/07/25 08:00 Narrative Exam General: Thin elderly man. Temporal wasting. Neurologic: Oriented to self, not oriented to place or time. GCS 13. Patient understands what is being said to him but is unable to speak more than 1 word answers. No gross motor neurological deficits. HEENT: Normocephalic atraumatic. Mucous membranes moist. Heart: Grade 3 systolic ejection murmur left sternal border. Regular rate and rhythm. Lungs: Clear to auscultation bilaterally with no wheezing or crackles. Abdomen: Soft, nondistended, nontender, positive bowel sounds. No guarding or rebound tenderness. Extremities: No edema. 2+ radial and dorsalis pedis pulses bilaterally. Skin: Warm. Dry. No rash or ecchymoses. Objective Labs 08/08/25 05:07 08/08/25 05:07 Labs: Laboratory Results - last 24 hr 08/06/25 08/07/25 04:45 04:38 WBC 3.6 L RBC 3.33 L Hgb 10.8 L Hct 32.0 L MCV 96 MCH 32.4 MCHC 33.8 RDW Std Deviation 47.5 H Plt Count 154 Neut % (Auto) 55 Lymph % (Auto) 24 [place] % (Auto) 16 H Eos % (Auto) 3 Baso % (Auto) 1 Neut # (Auto) 2.0 Lymph # (Auto) 0.9 L [place] # (Auto) 0.6 Eos # (Auto) 0.1 Baso # (Auto) 0.0 Immature Gran # (Auto) 0.02 H Absolute Nucleated RBC 0.00 Immature Gran % 1 H Nucleated RBC % 0 Sodium 144 Potassium 3.9 Chloride 109 H Carbon Dioxide 22.4 Anion Gap 13 BUN 24 H Creatinine 1.7 H Estim Creat Clear Calc 23.5 L eGFR 39 L BUN/Creatinine Ratio 14 Glucose 89 Calculated Osmolality 289 Calcium 9.3 Corrected Calcium 9.7 Phosphorus 3.4 Magnesium 1.8 Ferritin 146 Total Bilirubin 0.5 AST 29 ALT 14 Alkaline Phosphatase 114 Total Protein 5.6 L Albumin 3.5 Globulin 2.1 L Albumin/Globulin Ratio 1.7 Quality Measures Quality Measures sepsis Current suspected stage: ruled out Possible source: unknown Blood cultures ordered: yes Antibiotic ordered: No Advance care planning discussed with:: patient and legal surragate Assessment & Plan Assessment Current Active Medications: Generic Name Dose Route Start Last Admin Trade Name Freq PRN Reason Stop Dose Admin Acetaminophen 650 mg 08/05/25 19:48 Acetaminophen 325 Mg Tablet PO 09/04/25 19:47 Q6HR PRN Fever > 99.9 Amlodipine Besylate 2.5 mg 08/07/25 21:00 Amlodipine Besylate 2.5 Mg Tablet PO 09/06/25 20:59 HS MARCELLA Aspirin 81 mg 08/06/25 09:00 08/06/25 08:37 Aspirin Ec 81 Mg Tabec PO 09/05/25 08:59 81 mg DAILY MARCELLA Administration Atenolol 50 mg 08/07/25 09:00 Atenolol 25 Mg Tablet PO 09/06/25 08:59 DAILY MARCELLA Atorvastatin Calcium 40 mg 08/05/25 21:00 08/06/25 20:18 Atorvastatin Calcium 20 Mg Tablet PO 09/04/25 20:59 40 mg HS MARCELLA Administration Clopidogrel Bisulfate 75 mg 08/06/25 09:00 08/06/25 08:37 Clopidogrel Bisulfate 75 Mg Tablet PO 09/05/25 08:59 75 mg DAILY MARCELLA Administration Heparin Sodium (Porcine) 5,000 unit 08/06/25 14:00 08/07/25 05:41 Heparin Sod Inj 5000 Unit/Ml Vial SC 08/20/25 13:59 5,000 unit Q8HR MARCELLA Administration Ondansetron HCl 4 mg 08/05/25 18:38 Ondansetron Inj 2 Mg/Ml Inj 2 Ml IVP 09/04/25 18:37 Q6H PRN NAUSEA OR VOMITING Protocol Tamsulosin HCl 0.4 mg 08/07/25 09:00 Tamsulosin Hcl 0.4 Mg Capsule PO 09/06/25 08:59 Q24H MARCELLA Plan Summary: 84-year male with past medical history of hypertension, 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 Patient was admitted for workup of his CVA workup. #Altered mental status #CVA * Last known well was around 12:30 PM the day of admission * Head CT showed a small old infarct in the left cerebellar hemisphere right basal ganglia. Encephalomalacia in the posterior left parietal lobe. No acute hemorrhage. * CT head at 11PM 08/05: No interval acute hemorrhage, mass effect or midline shift * MRI showed Multiple embolic type acute infarcts left basal ganglia, left occipital lobe, left parietal lobe * Echo showed mild aortic regurg, mild mitral annulus calcification and thickening of the mitral leaflets with mild mitral regurg, mild tricuspid regurg * Speech evaluation did not demonstrate dysphagia. Noted aphasia. * PT recommended SNF placement at discharge. * Patient understands what is being said to him but is unable to speak more than 1 word answers. He is able to acknowledge this when asked by answering yes. * Patient's right hemineglect no longer present. Plan: * JULIAN ordered * Neurology consulted, appreciate recs * Neurochecks Q4 * IV fluid maintenance * Aspiration precautions * DAPT: 300 mg clopidogrel bolus x 1 followed by 75 daily. Aspirin 325 mg bolus followed by 81 mg daily, DC aspirin after 21 days * Atorvastatin 80 mg at bedtime * PT referral * Head of Bed 30 Degrees #Normocytic anemia * MCV 97, hemoglobin 10.5, hematocrit 30.4 on arrival * On review of the patient's past visits, this appears to be a chronic condition * Considering the presence of old age, chronic bedbound, and chronic Coccidioides infection Plan: * No direct intervention at this time * Trend H&H with morning labs * Transfuse if hemoglobin below 7 #HIPOLITO on CKD stage III * BUN 28, creatinine 1.9 on arrival * Per chart review baseline creatinine is roughly 1.7 * Creatinine 1.7 and stable Plan: * Avoid nephrotoxic agents * Renally dose medications #Hypertension * Stage II hypertension 147/76 on arrival, allowed for permissive HTN Plan: * Amlodipine 2.5 mg at bedtime * Atenolol 50 mg daily #Chronic Coccidioides pulmonary infection * Per chart review, patient is on fluconazole chronically Plan: * Consider restarting fluconazole after swallow eval passed Hospital Maintenance: DVT ppx: DAPT: Aspirin 81 mg daily, Plavix 75 mg daily Diet: Renal IV lines: Peripheral IVs Code status: DNR DNI Dispo: Continuing on DAPT. Neuro checks Q4 on the telemetry floor. Hemineglect resolved. Cardiology consulted. This case was discussed with my attending physician Dr. Juan Ramon PÉREZ and senior resident Dr Danielle PÉREZ PHY-2. Marco Martinez DO PGY-1 Attending Provider Attestation/Addendum I have examined the patient, reviewed labs and imaging findings, discussed the case with the resident(s), and reviewed entered orders. I agree with the plan of care as outlined in this note, with these additional summaries/recommendations: Patient and patient's family seen at bedside. No acute overnight events. Acute CVA confirmed. MRI brain revealed multiple embolic type infract's in the left basal ganglia, left occipital lobe, and left parietal lobe. In-house neurology following. Transthoracic echocardiogram showed no evidence of thrombus. No evidence of arrhythmia on telemetry thus far. Given these findings, patient would benefit from transesophageal echocardiogram which was ordered. Consult cardiology, recommendations appreciated. Continue dual antiplatelet therapy for now and high intensity statin. Patient was found to have severe aortic stenosis secondary to heavy calcification with aortic velocity 3.3 M/S and peak aortic valve gradient 44 mmHg. Continue to control vascular risk factors. Patient's chronic kidney disease is stable and continue to avoid nephrotoxic agents plus renally dose medications. Patient updated on the plan and in agreement. All questions answered to satisfaction. Please see residents note for additional details and management. Dr. Juan Ramon MD
[2025-08-07] MEDS: TAMSULOSIN HCL 0.4 MG CAPSULE PO (09:09)
[2025-08-07] MEDS: ASPIRIN EC 81 MG TABEC PO (09:09)
[2025-08-07] MEDS: CLOPIDOGREL BISULFATE 75 MG TABLET PO (09:10)
--- NOTE | 2025-08-07 09:34 | PC.SS ---
Follow up note: SS spoke to patient's son, Nickolas Perez, who is agreeable to [facility]. SS spoke to Nanda @ [facility] who will make contact with family. No bed available today but they will have one tomorrow. Patient is pending JULIAN today. [facility] @ [phone]
[2025-08-07] MEDS: ATORVASTATIN CALCIUM 20 MG TABLET 40 MG PO (20:17)
--- NOTE | 2025-08-07 23:46 | PD.NEUROPROG ---
Documentation for date of: 08/07/25 Subjective Subjective Interval history: Patient was seen in telemetry today at the bedside. Continues to have global aphasia and a right hemiparesis. Exam - Neurology Vital Signs Temp Pulse Resp BP Pulse Ox O2 Del Method 97.2 F 95 19 141/81 H 95 Room Air 08/07/25 20:00 08/07/25 20:17 08/07/25 20:00 08/07/25 20:17 08/07/25 20:00 08/07/25 20:00 Narrative Exam GENERAL APPEARANCE: Well hydrated, well-nourished in no acute distress. HEENT: Normocephalic, atraumatic, extraocular movements intact. Pupils: Equal reacting to light NECK: Supple, no JVD or bruits. CARDIOVASULAR: Heart: S1, S2 heard, regular without S3-S4 or murmur no rubs or gallops. LUNGS/CHEST: Clear to auscultation bilaterally. No rails, rhonchi, or wheezing. Normal inspection. ABDOMEN: Soft, nontender, with normal bowel sounds. No pulsatile masses. No rebound, rigidity, or guarding. Normal inspection and palpation. EXTREMITIES: Normal inspection and palpation. No edema, clubbing or cyanosis. SKIN: Warm and dry without rashes. Normal inspection. MUSCULOSKELETAL: No cervical, thoracic, lumbar or midline bony tenderness. Normal inspection. NEURO: Alert, awake and aphasic. Cranial nerves: II through XII grossly intact. Speech and language: Aphasic. Motor system: Tone and bulk: Normal: Strength: Significant right with neglect. deep tendon reflexes: 2+ bilaterally symmetrical. Plantar reflex: Downgoing bilaterally. Rest of the exam: Limited, not able to test secondary to language impairment. no signs of meningeal irritation noted. PSYCHIATRIC: Normal mood and affect. Objective Labs 08/07/25 04:38 08/07/25 04:38 Labs: Laboratory Results - last 24 hr 08/07/25 04:38 WBC 3.6 L RBC 3.33 L Hgb 10.8 L Hct 32.0 L MCV 96 MCH 32.4 MCHC 33.8 RDW Std Deviation 47.5 H Plt Count 154 Neut % (Auto) 55 Lymph % (Auto) 24 [place] % (Auto) 16 H Eos % (Auto) 3 Baso % (Auto) 1 Neut # (Auto) 2.0 Lymph # (Auto) 0.9 L [place] # (Auto) 0.6 Eos # (Auto) 0.1 Baso # (Auto) 0.0 Immature Gran # (Auto) 0.02 H Absolute Nucleated RBC 0.00 Immature Gran % 1 H Nucleated RBC % 0 Sodium 144 Potassium 3.9 Chloride 109 H Carbon Dioxide 22.4 Anion Gap 13 BUN 24 H Creatinine 1.7 H Estim Creat Clear Calc 23.5 L eGFR 39 L BUN/Creatinine Ratio 14 Glucose 89 Calculated Osmolality 289 Calcium 9.3 Corrected Calcium 9.7 Phosphorus 3.4 Magnesium 1.8 Total Bilirubin 0.5 AST 29 ALT 14 Alkaline Phosphatase 114 Total Protein 5.6 L Albumin 3.5 Globulin 2.1 L Albumin/Globulin Ratio 1.7 Assessment & Plan Assessment and plan (1) Acute CVA (cerebrovascular accident): Status: Acute Assessment and plan: Presented with aphasia and right hemiplegia MRI brain confirmed multiple acute infarct in the left cerebral hemisphere involving basal ganglia parietal and occipital lobe Echocardiogram: ejection action of 65% Continue aspirin, Plavix for 21 days followed by Plavix alone and statin. FU with transesophageal echocardiogram to look for cardiac causes for embolic type infarct. Continue with the speech therapy and occupational and physical therapy. (2) Hypertension: Status: Chronic
[2025-08-08] VITALS (23 sets, daily range): BP systolic 104–155; BP diastolic 57–92; PULSE 64–99; RESP 12–98; TEMP 36.2–36.6; O2SAT 95–100; BMI 16.9
--- NOTE | 2025-08-08 02:46 | PC.NURSE ---
[facility] downtime occurred on 08/08/2025 from 0200 to 0235.
[2025-08-08] MEDS: HEPARIN SOD INJ 5000 UNIT/ML VIAL SC ×2 (05:03→15:39)
[2025-08-08 06:01] LABS: Basophils # (Auto) 0.0 Thou/mm3 (0.0-0.2); Basophils % (Auto) 1 % (0-2.5); Eosinophils # (Auto) 0.1 Thou/mm3 (0.0-0.5); Eosinophils % (Auto) 3 % (0-10); Hematocrit 32.5 % (41.0-53.0); Hemoglobin 10.9 g/dL (13.5-16.0); Immature Granulocytes Auto 0.02 Thou/mm3 (0.00-0.00); Lymphocytes # (Auto) 0.8 Thou/mm3 (1.0-4.8); Lymphocytes % (Auto) 23 % (10-50); Mean Corpuscular HGB Conc 33.5 g/dl (31.0-37.0); Mean Corpuscular Hemoglobin 32.3 pg (25.0-35.0); Mean Corpuscular Volume 96 fL (80-100); Monocytes # (Auto) 0.7 Thou/mm3 (0.0-0.8); Monocytes % (Auto) 19 % (0-12); Neutrophils # (Auto) 2.0 Thou/mm3 (1.8-7.7); Neutrophils % (Auto) 55 % (37-80); Nucleated Red Blood Cell # 0.00 Thou/mm3 (0.00-0.00); Nucleated Red Blood Cell % 0 /100 WBC (0); Platelet Count 143 Thou/mm3 (140-440); RDW Standard Deviation 48.8 fL (35.1-43.9); Red Blood Count 3.37 Miln/mm3 (4.50-5.90); White Blood Count 3.6 Thou/mm3 (3.8-10.6)
[2025-08-08 06:28] LABS: Alanine Aminotransferase 14 U/L (10-49); Albumin, Serum 3.4 gm/dL (3.4-4.8); Albumin/Globulin Ratio 1.6 (1.2-2.2); Alkaline Phosphatase 105 U/L (46-116); Anion Gap 11 (7-16); Aspartate Amino Transferase 26 U/L (0-34); BUN/Creatinine Ratio 14 Ratio (12-20); Bilirubin,Total 0.5 mg/dL (0.3-1.2); Blood Urea Nitrogen 26 mg/dL (9-23); Calcium 9.3 mg/dL (8.3-10.6); Calcium (Corrected) 9.8 mg/dL (8.5-10.1); Carbon Dioxide 22.9 mMol/L (20.0-31.0); Chloride 111 mMol/L (98-107); Creatinine (Component) 1.8 mg/dL (0.6-1.3); Estimated Creatinine Clearance 22.0 mL/min (>60); Globulin 2.1 gm/dL (2.3-3.5); Glucose 95 mg/dL (74-106); Magnesium 2.1 mg/dL (1.6-2.6); Osmolality,Calculated 293 (275-295); Phosphorous 3.5 mg/dL (2.4-5.1); Potassium 4.1 mMol/L (3.4-5.1); Sodium 145 mMol/L (136-145); Total Protein 5.5 gm/dL (5.7-8.2); eGFR 36 See Note
[2025-08-08] MEDS: ASPIRIN 81 MG CHEW PO (08:37)
[2025-08-08] MEDS: CLOPIDOGREL BISULFATE 75 MG TABLET PO (08:37)
[2025-08-08] MEDS: RINGERS LACTATED 1000 ML 1,000 ML 100 ML IV (08:37)
[2025-08-08] MEDS: FLUCONAZOLE 100 MG TABLET 200 MG PO ×2 (08:50→20:28)
--- NOTE | 2025-08-08 10:27 | XR_ITS ---
Examination: Carotid arterial duplex scan, ultrasound. Date and time of exam: August 08, 2025, 1457 hours INDICATIONS: Stroke alert, multiple embolic acute infarcts on brain MRI 08/06/2025 Technique: Multiple sonographic images have been obtained of the carotid arteries and vertebral arteries, B-mode/grayscale imaging and Doppler spectral analysis and color flow Peak systolic and diastolic velocities have been recorded. Systolic diastolic ratios have been calculated. Findings: Right peak systolic velocities: Distal internal carotid artery peak systolic velocity is 0.6 M/sec Proximal internal carotid artery peak systolic velocity is 0.3 M/sec Carotid bifurcation peak systolic velocity is 0.6 M/sec External carotid artery peak systolic velocity is 0.4 M/sec Vertebral artery flow is antegrade. Left peak systolic velocities: Distal internal carotid artery peak systolic velocity is 0.6 M/sec Proximal internal carotid artery peak systolic velocity is 23 M/sec Carotid bifurcation peak systolic velocity is 0.5 M/sec External carotid artery peak systolic velocity is 0.3 M/sec Vertebral artery flow is antegrade Doppler waveform analysis demonstrates no spectral broadening Impression: Right internal carotid artery demonstrates 0-10% stenosis. Left internal carotid artery demonstrates 0-10% stenosis.
--- NOTE | 2025-08-08 13:37 | PD.RESPRO ---
Documentation for date of: 08/08/25 Exam Vital Signs Temp Pulse Resp BP Pulse Ox O2 Del Method O2 Flow Rate 97.9 F 65 23 H 136/71 H 100 Nasal Cannula 3 08/08/25 11:23 08/08/25 12:30 08/08/25 12:30 08/08/25 12:30 08/08/25 12:30 08/08/25 12:30 08/08/25 12:30 Objective Labs 08/08/25 05:07 08/08/25 05:07 Labs: Laboratory Results - last 24 hr 08/08/25 05:07 WBC 3.6 L RBC 3.37 L Hgb 10.9 L Hct 32.5 L MCV 96 MCH 32.3 MCHC 33.5 RDW Std Deviation 48.8 H Plt Count 143 Neut % (Auto) 55 Lymph % (Auto) 23 [place] % (Auto) 19 H Eos % (Auto) 3 Baso % (Auto) 1 Neut # (Auto) 2.0 Lymph # (Auto) 0.8 L [place] # (Auto) 0.7 Eos # (Auto) 0.1 Baso # (Auto) 0.0 Immature Gran # (Auto) 0.02 H Absolute Nucleated RBC 0.00 Immature Gran % 1 H Nucleated RBC % 0 Sodium 145 Potassium 4.1 Chloride 111 H Carbon Dioxide 22.9 Anion Gap 11 BUN 26 H Creatinine 1.8 H Estim Creat Clear Calc 22.0 L eGFR 36 L BUN/Creatinine Ratio 14 Glucose 95 Calculated Osmolality 293 Calcium 9.3 Corrected Calcium 9.8 Phosphorus 3.5 Magnesium 2.1 Total Bilirubin 0.5 AST 26 ALT 14 Alkaline Phosphatase 105 Total Protein 5.5 L Albumin 3.4 Globulin 2.1 L Albumin/Globulin Ratio 1.6 Quality Measures Quality Measures sepsis Possible source: unknown Blood cultures ordered: yes Assessment & Plan Assessment Current Active Medications: Generic Name Dose Route Start Last Admin Trade Name Freq PRN Reason Stop Dose Admin Acetaminophen 650 mg 08/05/25 19:48 Acetaminophen 325 Mg Tablet PO 09/04/25 19:47 Q6HR PRN Fever > 99.9 Amlodipine Besylate 2.5 mg 08/07/25 21:00 08/07/25 20:17 Amlodipine Besylate 2.5 Mg Tablet PO 09/06/25 20:59 2.5 mg HS MARCELLA Administration Aspirin 81 mg 08/08/25 09:00 08/08/25 08:37 Aspirin 81 Mg Chew PO 09/05/25 08:59 81 mg DAILY MARCELLA Administration Atenolol 50 mg 08/07/25 09:00 08/08/25 08:53 Atenolol 25 Mg Tablet PO 09/06/25 08:59 Not Given DAILY MARCELLA Atorvastatin Calcium 40 mg 08/05/25 21:00 08/07/25 20:17 Atorvastatin Calcium 20 Mg Tablet PO 09/04/25 20:59 40 mg HS MARCELLA Administration Clopidogrel Bisulfate 75 mg 08/06/25 09:00 08/08/25 08:37 Clopidogrel Bisulfate 75 Mg Tablet PO 09/05/25 08:59 75 mg DAILY MARCELLA Administration Fluconazole 200 mg 08/08/25 09:00 08/08/25 08:50 Fluconazole 100 Mg Tablet PO 08/15/25 08:59 200 mg BID MARCELLA Administration Heparin Sodium (Porcine) 5,000 unit 08/06/25 14:00 08/08/25 05:03 Heparin Sod Inj 5000 Unit/Ml Vial SC 08/20/25 13:59 5,000 unit Q8HR MARCELLA Administration Lactated Ringer's 1,000 mls @ 100 mls/hr 08/08/25 08:15 08/08/25 08:37 Lactated Ringers IV 08/08/25 18:14 100 mls/hr .Q10H MARCELLA Administration Ondansetron HCl 4 mg 08/05/25 18:38 Ondansetron Inj 2 Mg/Ml Inj 2 Ml IVP 09/04/25 18:37 Q6H PRN NAUSEA OR VOMITING Protocol Tamsulosin HCl 0.4 mg 08/07/25 09:00 08/08/25 08:53 Tamsulosin Hcl 0.4 Mg Capsule PO 09/06/25 08:59 Not Given Q24H MARCELLA
--- NOTE | 2025-08-08 13:39 | PD.RESCONSUL ---
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 Patient is currently a poor historian due to current mental status. History was obtained from patient's son, Nickolas Perez. However, majority of medical history was unable to be obtained as patient's , who was his main regulator mechanic, about 3 weeks ago. Per son, patient was found on the floor unconscious in a pool of urine. Unknown how long patient was on ground as son does not live with him. For the past 3-4 days prior, patient has been experiencing difficulty remembering things and with word finding. Did not observe any other weaknesses or neurologic deficits such as vision changes or unsteady gait. At baseline, he is independent with all ADLs. Patient follows nurses' association executive director Dr. Del Rosario for hypertension. ROS unable to be obtained due to patient's altered mental status. PMH: As above. No known history of cardiac disease. PSH: partial colectomy 2 years ago Family Hx: father had heart disease and hypertension. Social Hx: Per son, patient used to smoke and drink heavily but quit in 1970s. Unknown quantity or duration. Denies recreational or illicit drug use. Currently lives at home with other son, Escobar, previously also with who is now . Cardiology consulted for work up and management of possible cardiac etiology of CVA. cc:: cc: Jose Delatorre MD Exam Vital Signs Temp Pulse Resp BP Pulse Ox O2 Del Method O2 Flow Rate 97.9 F 65 23 H 136/71 H 100 Nasal Cannula 3 08/08/25 11:23 08/08/25 12:30 08/08/25 12:30 08/08/25 12:30 08/08/25 12:30 08/08/25 12:30 08/08/25 12:30 Narrative Exam Narrative Exam GENERAL: AOx2 not to time, no acute distress, able to speak in full sentences HEENT: NC/AT, mucous membranes moist, bilateral sclera anicteric CARDIOVASCULAR: regular rate and rhythm, S1/S2 present, 3/6 systolic murmur heard best R 2nd L intercostal space radiating to carotids PULMONARY: clear to auscultation bilaterally, no rales/rhonchi/wheezes ABDOMINAL: soft, non-tender, non-distended, no rebound/guarding, bowel sounds present EXTREMITIES: no peripheral edema SKIN: warm and dry, intact, no rashes NEURO: CN II-XII grossly intact, no focal deficits, alert, following commands, 4/5 RUE flexion and speech language pathologist prn strength, 5/5 LUE flexion and speech language pathologist prn strength, 4/5 R hip flexion, 5/5 L hip flexion Results Labs 08/08/25 05:07 08/08/25 05:07 Labs: Short CBC 08/08/25 Range/Units 05:07 WBC 3.6 L (3.8-10.6) Thou/mm3 Hgb 10.9 L (13.5-16.0) g/dL Hct 32.5 L (41.0-53.0) % Plt Count 143 (140-440) Thou/mm3 BMP 08/08/25 05:07 Sodium 145 Potassium 4.1 Chloride 111 H Carbon Dioxide 22.9 BUN 26 H Creatinine 1.8 H Glucose 95 Calcium 9.3 Liver Function 08/08/25 Range/Units 05:07 Total Bilirubin 0.5 (0.3-1.2) mg/dL AST 26 (0-34) U/L ALT 14 (10-49) U/L Alkaline Phosphatase 105 (46-116) U/L Albumin 3.4 (3.4-4.8) gm/dL Quality Measures Quality Measures sepsis Current suspected stage: ruled out Possible source: unknown Blood cultures ordered: yes Antibiotic ordered: No Advance care planning discussed with:: other (patient's son ) Medications Home Medications and Allergies Home Medications ?Medication ?Instructions ?Recorded ?Confirmed ?Type atenolol 50 mg tablet 50 mg PO DAILY ##0 12/23/10 08/06/25 History amlodipine 2.5 mg tablet 2.5 mg feeding tube HS 04/21/24 08/06/25 History fluconazole 200 mg tablet 200 mg PO DAILY 04/21/24 08/06/25 History loperamide 2 mg capsule 2 mg PO BID PRN loose stool 08/06/25 08/06/25 History tamsulosin 0.4 mg capsule 0.4 mg PO Q24H 08/06/25 08/06/25 History Allergies Allergy/AdvReac Type Severity Reaction Status Date / Time doxycycline Allergy Severe WHELPS Verified 10/31/23 16:23 IMMEDIATELY fibrinolysin AdvReac Severe Rash Verified 04/21/24 11:45 morphine AdvReac Severe PARANOID, Verified 04/21/24 11:45 HALLUCINATIONS Visit Medications Acetaminophen (Acetaminophen 325 Mg Tablet) 650 mg PO Q6HR PRN PRN Reason: Fever > 99.9 Stop: 09/04/25 19:47 Amlodipine Besylate (Amlodipine Besylate 2.5 Mg Tablet) 2.5 mg PO HS MARCELLA Stop: 09/06/25 20:59 Last Admin: 08/07/25 20:17 Dose: 2.5 mg Aspirin (Aspirin 81 Mg Chew) 81 mg PO DAILY MARCELLA Stop: 09/05/25 08:59 Last Admin: 08/08/25 08:37 Dose: 81 mg Atenolol (Atenolol 25 Mg Tablet) 50 mg PO DAILY MARCELLA Stop: 09/06/25 08:59 Last Admin: 08/08/25 08:53 Dose: Not Given Atorvastatin Calcium (Atorvastatin Calcium 20 Mg Tablet) 40 mg PO HS MARCELLA Stop: 09/04/25 20:59 Last Admin: 08/07/25 20:17 Dose: 40 mg Clopidogrel Bisulfate (Clopidogrel Bisulfate 75 Mg Tablet) 75 mg PO DAILY MARCELLA Stop: 09/05/25 08:59 Last Admin: 08/08/25 08:37 Dose: 75 mg Fluconazole (Fluconazole 100 Mg Tablet) 200 mg PO BID MARCELLA Stop: 08/15/25 08:59 Last Admin: 08/08/25 08:50 Dose: 200 mg Heparin Sodium (Porcine) (Heparin Sod Inj 5000 Unit/Ml Vial) 5,000 unit SC Q8HR MARCELLA Stop: 08/20/25 13:59 Last Admin: 08/08/25 05:03 Dose: 5,000 unit Lactated Ringer's (Lactated Ringers) 1,000 mls @ 100 mls/hr IV .Q10H MARCELLA Stop: 08/08/25 18:14 Last Admin: 08/08/25 08:37 Dose: 100 mls/hr Ondansetron HCl (Ondansetron Inj 2 Mg/Ml Inj 2 Ml) 4 mg IVP Q6H PRN; Protocol PRN Reason: NAUSEA OR VOMITING Stop: 09/04/25 18:37 Tamsulosin HCl (Tamsulosin Hcl 0.4 Mg Capsule) 0.4 mg PO Q24H MARCELLA Stop: 09/06/25 08:59 Last Admin: 08/08/25 08:53 Dose: Not Given Discontinued Medications Aspirin (Aspirin 325 Mg Tablet) 325 mg PO X1 ONE Stop: 08/05/25 19:44 Last Admin: 08/05/25 20:43 Dose: 325 mg Aspirin (Aspirin Ec 81 Mg Tabec) 81 mg PO DAILY MARCELLA Stop: 09/05/25 08:59 Last Admin: 08/07/25 09:09 Dose: 81 mg Clopidogrel Bisulfate (Clopidogrel Bisulfate 75 Mg Tablet) 300 mg PO X1 ONE Stop: 08/05/25 19:44 Last Admin: 08/05/25 20:43 Dose: 300 mg Ceftriaxone Sodium/Dextrose (Rocephin/D5w 1gm Iv Premix) 1 gm in 50 mls @ 100 mls/hr IV STAT STA Stop: 08/05/25 14:09 Last Infusion: 08/05/25 14:43 Dose: Infused Lactated Ringer's (Lactated Ringers) 500 mls @ 500 mls/hr IV .Q1H ONE Stop: 08/05/25 14:39 Last Infusion: 08/05/25 16:01 Dose: Infused Lactated Ringer's (Lactated Ringers) 1,000 mls @ 85 mls/hr IV .[id number] ONE Stop: 08/06/25 07:31 Last Admin: 08/05/25 20:46 Dose: 85 mls/hr Assessment & Plan Plan Patient is an 84 year old male with past medical history of HTN, 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 #Acute CVA L basal ganglia, L parietal and L occipital lobes #Small old infarct left cerebellar hemisphere right basal ganglia (08/05/25) Presented with altered mental status with right hemineglect and decreased strength in right upper extremity with last known well 12:30 PM day of admission. Head CT negative for acute infarct. Head neck CTA showed no significant arterial stenosis or large cerebral vessel arterial occlusion or thrombus Brain MRI showed multiple embolic type acute infarcts of left basal ganglia, left occipital lobe left parietal lobe EEG normal with no focal, diffuse, or generalized abnormalities 08/06/25 Echo showed aortic root is normal in dimension. Aortic valve showed evidence of heavy calcification with moderate to severe calcific aortic stenosis aortic velocity 3.3 m/s. Peak aortic valve gradient 44 mmHg mean gradient of 23 mmHg. There is evidence of mild aortic valve regurgitation. Normal-sized left ventricle with normal left lateral wall motion ejection fraction of 65%. The right ventricle is normal in size and systolic function. Mild mitral annulus calcification and thickening of the mitral leaflets with mild mitral regurgitation. Mild tricuspid regurgitation with normal PA pressure. Plan: - Spoke with patient's son Nickolas over telephone. Son denies any kind of swallowing problems or any kind of esophageal interventions or previous surgeries. speech therapy cleared for feeding and no dysphagia. - Son denies any kind of gastric ulcers bleeding and any other hematemesis or hematochezia. - Son denies any issues with anesthesia previously. - Son explained all the risks, benefits and alternatives of JULIAN including the risk of perforation, bleeding, respiratory failure secondary to sedation, injury to teeth gums esophagus and stomach. Son understands all risks and benefits and provided consent for the procedure. - Pt is n.p.o. since last night and plan for JULIAN in the afternoon. - Continue atorvastatin 80 mg nightly - Continue other medical management recommendations per neurology - Plan for JULIAN today per neurology recommendations #Moderate to severe aortic stenosis #Mild mitral regurgitation Denies episodes of syncope in the past. Has been feeling fatigued, but nothing unusual per patient. Unable to recall if sees a nurses' association executive director. 08/06/25 Echo showed Aortic root is normal in dimension. Aortic valve showed evidence of heavy calcification with moderate to severe calcific aortic stenosis aortic velocity 3.3 m/s. Peak aortic valve gradient 44 mmHg mean gradient of 23 mmHg. There is evidence of mild aortic valve regurgitation. Normal-sized left ventricle with normal left lateral wall motion ejection fraction of 65%. The right ventricle is normal in size and systolic function. Mild mitral annulus calcification and thickening of the mitral leaflets with mild mitral regurgitation. Mild tricuspid regurgitation with normal PA pressure. ROPE score 2 Plan: - No indication for emergent valve replacement - Recommend outpatient for further management and work up for possible TAVR #HTN Per history. At home taking amlodipine 2.5 mg QD and atenolol 50 mg QD. Systolic in 100-110s. Plan: - Continue home amlodpipine 2.5 mg QD and atenolol 50 mg QD. #HIPOLITO on CKDIIIb #Normocytic anemia #Chronic Coccidioides pulmonary infection Patient plan of care was discussed with the attending physician, Dr. Lam . Mara Martínez, PGY-1 Attending Provider Attestation/Addendum I have personally seen and examined the patient separately on the above date of service and discussed the plan of care with the resident. I reviewed the resident Dr. Mara Martínez consultation progress note and agree with the resident findings and plan in the note above and have also edited the documentation to reflect my findings and plan. 84-year-old male with a past medical history of pulmonary coccidiomycosis on fluconazole, essential hypertension, chronic venous insufficiency, CKD stage IIIb, BPH initially presented to the emergency department for further evaluation of altered mental status. Patient was diagnosed with an acute stroke with multiple bilateral embolic infarcts. Cardiology now consulted to rule out likely source of cardioembolic source. Echocardiogram was already performed which showed normal LV function and RV function with question of moderate to severe aortic stenosis V-max of 3.2 m/s, peak gradient of 44 mmHg, mean gradient of 43 mmHg., Mild MR, mild TR. Primary team number requesting a JULIAN as per the recommendations of neurology. - Spoke with patient's son Nickolas over telephone. Son denies any kind of swallowing problems or any kind of esophageal interventions or previous surgeries. speech therapy cleared for feeding and no dysphagia. - Son denies any kind of gastric ulcers bleeding and any other hematemesis or hematochezia. - Son denies any issues with anesthesia previously. - Son explained all the risks, benefits and alternatives of JULIAN including the risk of perforation, bleeding, respiratory failure secondary to sedation, injury to teeth gums esophagus and stomach. Son understands all risks and benefits and provided consent for the procedure. - Pt is n.p.o. since last night and plan for JULIAN in the afternoon. Management of rest of the medical conditions as per primary team and other consultants. Thank you for the consult and allowing me to participate in the care of the patient. Cardiology will continue to follow. Curry Lam M.D. Interventional Cardiology
[2025-08-08] MEDS: fentaNYL CIT INJ 50 mCg/ML AMP 2ML IVP (13:49)
[2025-08-08] MEDS: BENZOCAINE 20% (Hurricaine) SPRAY 1 DOSE TOP (13:49)
[2025-08-08] MEDS: MIDAZOLAM INJ 1 MG/ML VIAL 2 ML 3 MG IVP (13:49)
--- NOTE | 2025-08-08 14:13 | ESPR_ITS ---
<Statement entered by Aquilino Dow MD - 08/08/25 17:49> Patient was seen and evaluated at bedside this morning. No acute overnight events. Patient this morning was a lot more communicative and was responding to questions and was AO x 2, not to time. Patient was pending a JULIAN which was done today by cardiology, still pending official read. Patient also got a ultrasound of the carotids which showed stenosis of less than 10% bilaterally. Will continue with aspirin and Plavix for 21 days and then just switch to Plavix by itself. Continue atorvastatin 80 mg. Patient's kidney function also continued to deteriorate at 1.8 today, likely in the setting of contrast will give IV fluids for now and monitor. Possible discharge in the next 24 to 48 hours. Note reviewed and agree with resident's care plan documented except as noted above. Case disclosed with Attending Dr. Juan Ramon Dow PGY2 Disclaimer: Even though this this note was dictated by speech recognition and even though it was carefully revised there may still be minor errors in job boss due to voice recognition software. Documentation for date of: 08/08/25 Subjective Subjective Interval history: No acute overnight events. Patient seen and examined at bedside. Telemetry reviewed, no arrhythmias noted. Patient is alert and oriented x 2 today not to time. Is able to speak in full sentences and reply accordingly, which is an improvement from earlier as he was only able to answer one-word answers. Patient currently feels well, and endorses some right arm and right leg weakness that has improved since admission. Denies chest pain, shortness of breath or fever. BP 120-140/70s, heart rate averages 70s to 80s. BP a.m. 124/69 heart rate 66. WBC stable low 3.6, hemoglobin stable at 10.9. Potassium 4.1, BUN mildly elevated 26, creatinine increasing from 1.7 to 1.8. EEG negative for seizure activity Per neuro recommendations, aspirin and Plavix for 21 days then Plavix only. Increase atorvastatin 40 to 80 mg nightly. Pending JULIAN patient is NPO. Creatinine continues to uptrend, start NS 1 L. Restart home fluconazole 200 mg twice daily. Exam Vital Signs Temp Pulse Resp BP Pulse Ox O2 Del Method O2 Flow Rate 97.9 F 79 16 117/73 100 Nasal Cannula 3 08/08/25 11:23 08/08/25 14:10 08/08/25 14:10 08/08/25 14:10 08/08/25 14:10 08/08/25 14:10 08/08/25 14:10 Narrative Exam GENERAL: AOx2 not to time, no acute distress, able to speak in full sentences HEENT: NC/AT, mucous membranes moist, bilateral sclera anicteric CARDIOVASCULAR: regular rate and rhythm, S1/S2 present, 3/6 systolic murmur heard best R 2nd L intercostal space radiating to carotids PULMONARY: clear to auscultation bilaterally, no rales/rhonchi/wheezes ABDOMINAL: soft, non-tender, non-distended, no rebound/guarding, bowel sounds present EXTREMITIES: no peripheral edema SKIN: warm and dry, intact, no rashes NEURO: CN II-XII grossly intact, no focal deficits, alert, following commands, 4 /5 RUE flexion and civil engineering drafter strength, 5/5 LUE flexion and civil engineering drafter strength, 4/5 R hip flexion, 5/5 L hip flexion Objective Labs 08/09/25 04:24 08/09/25 04:24 Labs: Laboratory Results - last 24 hr 08/08/25 05:07 WBC 3.6 L RBC 3.37 L Hgb 10.9 L Hct 32.5 L MCV 96 MCH 32.3 MCHC 33.5 RDW Std Deviation 48.8 H Plt Count 143 Neut % (Auto) 55 Lymph % (Auto) 23 [place] % (Auto) 19 H Eos % (Auto) 3 Baso % (Auto) 1 Neut # (Auto) 2.0 Lymph # (Auto) 0.8 L [place] # (Auto) 0.7 Eos # (Auto) 0.1 Baso # (Auto) 0.0 Immature Gran # (Auto) 0.02 H Absolute Nucleated RBC 0.00 Immature Gran % 1 H Nucleated RBC % 0 Sodium 145 Potassium 4.1 Chloride 111 H Carbon Dioxide 22.9 Anion Gap 11 BUN 26 H Creatinine 1.8 H Estim Creat Clear Calc 22.0 L eGFR 36 L BUN/Creatinine Ratio 14 Glucose 95 Calculated Osmolality 293 Calcium 9.3 Corrected Calcium 9.8 Phosphorus 3.5 Magnesium 2.1 Total Bilirubin 0.5 AST 26 ALT 14 Alkaline Phosphatase 105 Total Protein 5.5 L Albumin 3.4 Globulin 2.1 L Albumin/Globulin Ratio 1.6 Quality Measures Quality Measures sepsis Current suspected stage: ruled out Possible source: unknown Blood cultures ordered: yes Antibiotic ordered: No Advance care planning discussed with:: patient Assessment & Plan Assessment Current Active Medications: Generic Name Dose Route Start Last Admin Trade Name Freq PRN Reason Stop Dose Admin Acetaminophen 650 mg 08/05/25 19:48 Acetaminophen 325 Mg Tablet PO 09/04/25 19:47 Q6HR PRN Fever > 99.9 Amlodipine Besylate 2.5 mg 08/07/25 21:00 08/07/25 20:17 Amlodipine Besylate 2.5 Mg Tablet PO 09/06/25 20:59 2.5 mg HS MARCELLA Administration Aspirin 81 mg 08/08/25 09:00 08/08/25 08:37 Aspirin 81 Mg Chew PO 09/05/25 08:59 81 mg DAILY MARCELLA Administration Atenolol 50 mg 08/07/25 09:00 08/08/25 08:53 Atenolol 25 Mg Tablet PO 09/06/25 08:59 Not Given DAILY MARCELLA Atorvastatin Calcium 40 mg 08/05/25 21:00 08/07/25 20:17 Atorvastatin Calcium 20 Mg Tablet PO 09/04/25 20:59 40 mg HS MARCELLA Administration Clopidogrel Bisulfate 75 mg 08/06/25 09:00 08/08/25 08:37 Clopidogrel Bisulfate 75 Mg Tablet PO 09/05/25 08:59 75 mg DAILY MARCELLA Administration Fluconazole 200 mg 08/08/25 09:00 08/08/25 08:50 Fluconazole 100 Mg Tablet PO 08/15/25 08:59 200 mg BID MARCELLA Administration Heparin Sodium (Porcine) 5,000 unit 08/06/25 14:00 08/08/25 05:03 Heparin Sod Inj 5000 Unit/Ml Vial SC 08/20/25 13:59 5,000 unit Q8HR MARCELLA Administration Lactated Ringer's 1,000 mls @ 100 mls/hr 08/08/25 08:15 08/08/25 08:37 Lactated Ringers IV 08/08/25 18:14 100 mls/hr .Q10H MARCELLA Administration Ondansetron HCl 4 mg 08/05/25 18:38 Ondansetron Inj 2 Mg/Ml Inj 2 Ml IVP 09/04/25 18:37 Q6H PRN NAUSEA OR VOMITING Protocol Tamsulosin HCl 0.4 mg 08/07/25 09:00 08/08/25 08:53 Tamsulosin Hcl 0.4 Mg Capsule PO 09/06/25 08:59 Not Given Q24H MARCELLA Plan Edalberto Perez 84M pmhx significant for HTN, 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 #Acute CVA L basal ganglia, L parietal and L occipital lobes Patient presented with altered mental status with right hemineglect and decreased strength in right upper extremity with last known well 12:30 PM day of admission. Head CT showed no acute hemorrhage mass effect or midline shift. Head neck CTA showed no significant arterial stenosis or large cerebral vessel arterial occlusion or thrombus Brain MRI showed multiple embolic type acute infarcts of left basal ganglia, left occipital lobe left parietal lobe EEG normal with no focal, diffuse, or generalized abnormalities 08/06/25 Echo showed Aortic root is normal in dimension. Aortic valve showed evidence of heavy calcification with moderate to severe calcific aortic stenosis aortic velocity 3.3 m/s. Peak aortic valve gradient 44 mmHg mean gradient of 23 mmHg. There is evidence of mild aortic valve regurgitation. Normal-sized left ventricle with normal left lateral wall motion ejection fraction of 65%. The right ventricle is normal in size and systolic function. Mild mitral annulus calcification and thickening of the mitral leaflets with mild mitral regurgitation. Mild tricuspid regurgitation with normal PA pressure. Plan: - Neurology consulted, recs appreciated: ASA and Plavix for 21 days, and then Plavix only following. Atorvastatin 80 mg qhs - F/u JULIAN and carotid US - Neurochecks q4h - Aspiration precautions, head of bed elevated 30 deg - PT recommends SNF at discharge #HIPOLITO on CKDIIIb On admission Cr 1.9 and BUN 28, with baseline 1.2-1.4. Admission UA trace protein, 1+ blood, 17 RBC. On chart review, patient had 3+ proteinuria in 2020. CK 326. Likely insult from acute CVA vs prerenal dehydration vs consequence of elevated CK Plan: - Start LR 1L at 100 cc/hr - Avoid nephrotoxic medication, renally dose medication - CTM Cr #Moderate to severe aortic stenosis #Mild mitral regurgitation Patient denies episodes of syncope in the past. Has been feeling fatigued, but nothing unusual per patient. Unable to recall if sees a metal roofing mechanic. 08/06/25 Echo showed Aortic root is normal in dimension. Aortic valve showed evidence of heavy calcification with moderate to severe calcific aortic stenosis aortic velocity 3.3 m/s. Peak aortic valve gradient 44 mmHg mean gradient of 23 mmHg. There is evidence of mild aortic valve regurgitation. Normal-sized left ventricle with normal left lateral wall motion ejection fraction of 65%. The right ventricle is normal in size and systolic function. Mild mitral annulus calcification and thickening of the mitral leaflets with mild mitral regurgitation. Mild tricuspid regurgitation with normal PA pressure. Plan: - Cardiology consulted, recs appreciated - Unlikely need for emergent surgery and intervention at this time #Normocytic anemia Admission Hgb 10.5, stable. MCV 98. Likely CORA with iron low 43, TIBC low 187, Iron sat wnl 22, unsat iron binding low 144 Plan: - Recommend outpatient iron supplementation and follow up #HTN Per history. At home taking amlodipine 2.5 mg QD and atenolol 50 mg QD Plan: - Continue home amlodpipine 2.5 mg QD and atenolol 50 mg QD. #Chronic Coccidioides pulmonary infection On fluconazole 200 mg BID Plan: - Continue home fluconazole 200 mg BID Hospital management: Lines: PIV Diet: NPO iso JULIAN Bowel: not indicated GI prophylaxis: not indicated DVT prophylaxis: heparin q8h Disposition: tele for CVA workup CODE STATUS: DNR Plan of care discussed with attending Dr. Delatorre, and PGY-2 Dr. Diego Dow. Mirna Martínez, PGY-1 Internal Medicine Attending Provider Attestation/Addendum I have examined the patient, reviewed labs and imaging findings, discussed the case with the resident(s), and reviewed entered orders. I agree with the plan of care as outlined in this note. Dr. Juan Ramon MD
--- NOTE | 2025-08-08 15:33 | PC.SS ---
Rounding Note: JULIAN pending. Cardiology recommendations pending.
--- NOTE | 2025-08-08 18:22 | PD.RESPRO ---
Documentation for date of: 08/08/25 Subjective Subjective Interval history: Patient examined at bedside. Completed JULIAN, no major complaints, I spoke with family at bedside. Patient is improving and able to indicate little better from yesterday. Vitals are stable, labs significant for slight uptrend in creatinine to 1.8 today. JULIAN results are pending. Continue atorvastatin 40 mg daily, aspirin and Plavix. Exam Vital Signs Temp Pulse Resp BP Pulse Ox O2 Del Method O2 Flow Rate 97.1 F 66 17 134/73 H 97 Room Air 3 08/08/25 15:56 08/08/25 16:00 08/08/25 15:56 08/08/25 15:56 08/08/25 15:56 08/08/25 15:56 08/08/25 14:15 Narrative Exam GENERAL APPEARANCE: Well hydrated, well-nourished in no acute distress. HEENT: Normocephalic, atraumatic, extraocular movements intact. Pupils: Equal reacting to light NECK: Supple, no JVD or bruits. CARDIOVASULAR: Heart: S1, S2 heard, regular without S3-S4 or murmur no rubs or gallops. LUNGS/CHEST: Clear to auscultation bilaterally. No rails, rhonchi, or wheezing. Normal inspection. ABDOMEN: Soft, nontender, with normal bowel sounds. No pulsatile masses. No rebound, rigidity, or guarding. Normal inspection and palpation. EXTREMITIES: Normal inspection and palpation. No edema, clubbing or cyanosis. SKIN: Warm and dry without rashes. Normal inspection. MUSCULOSKELETAL: No cervical, thoracic, lumbar or midline bony tenderness. Normal inspection. NEURO: Alert, awake and aphasic but improved from yesterday. Cranial nerves: II through XII grossly intact. Speech and language: Aphasic. Motor system: Tone and bulk: Normal: Strength: Significant right with neglect. deep tendon reflexes: 2+ bilaterally symmetrical. PSYCHIATRIC: Normal mood and affect. Objective Labs 08/09/25 04:24 08/09/25 04:24 Labs: Laboratory Results - last 24 hr 08/08/25 05:07 WBC 3.6 L RBC 3.37 L Hgb 10.9 L Hct 32.5 L MCV 96 MCH 32.3 MCHC 33.5 RDW Std Deviation 48.8 H Plt Count 143 Neut % (Auto) 55 Lymph % (Auto) 23 [place] % (Auto) 19 H Eos % (Auto) 3 Baso % (Auto) 1 Neut # (Auto) 2.0 Lymph # (Auto) 0.8 L [place] # (Auto) 0.7 Eos # (Auto) 0.1 Baso # (Auto) 0.0 Immature Gran # (Auto) 0.02 H Absolute Nucleated RBC 0.00 Immature Gran % 1 H Nucleated RBC % 0 Sodium 145 Potassium 4.1 Chloride 111 H Carbon Dioxide 22.9 Anion Gap 11 BUN 26 H Creatinine 1.8 H Estim Creat Clear Calc 22.0 L eGFR 36 L BUN/Creatinine Ratio 14 Glucose 95 Calculated Osmolality 293 Calcium 9.3 Corrected Calcium 9.8 Phosphorus 3.5 Magnesium 2.1 Total Bilirubin 0.5 AST 26 ALT 14 Alkaline Phosphatase 105 Total Protein 5.5 L Albumin 3.4 Globulin 2.1 L Albumin/Globulin Ratio 1.6 Quality Measures Quality Measures sepsis Current suspected stage: ruled out Possible source: unknown Blood cultures ordered: yes Antibiotic ordered: Yes Advance care planning discussed with:: patient Assessment & Plan Assessment Current Active Medications: Generic Name Dose Route Start Last Admin Trade Name Freq PRN Reason Stop Dose Admin Acetaminophen 650 mg 08/05/25 19:48 Acetaminophen 325 Mg Tablet PO 09/04/25 19:47 Q6HR PRN Fever > 99.9 Amlodipine Besylate 2.5 mg 08/07/25 21:00 08/07/25 20:17 Amlodipine Besylate 2.5 Mg Tablet PO 09/06/25 20:59 2.5 mg HS MARCELLA Administration Aspirin 81 mg 08/08/25 09:00 08/08/25 08:37 Aspirin 81 Mg Chew PO 09/05/25 08:59 81 mg DAILY MARCELLA Administration Atenolol 50 mg 08/07/25 09:00 08/08/25 08:53 Atenolol 25 Mg Tablet PO 09/06/25 08:59 Not Given DAILY MARCELLA Atorvastatin Calcium 80 mg 08/08/25 21:00 Atorvastatin Calcium 20 Mg Tablet PO 09/07/25 20:59 HS MARCELLA Clopidogrel Bisulfate 75 mg 08/06/25 09:00 08/08/25 08:37 Clopidogrel Bisulfate 75 Mg Tablet PO 09/05/25 08:59 75 mg DAILY MARCELLA Administration Fluconazole 200 mg 08/08/25 09:00 08/08/25 08:50 Fluconazole 100 Mg Tablet PO 08/15/25 08:59 200 mg BID MARCELLA Administration Heparin Sodium (Porcine) 5,000 unit 08/06/25 14:00 08/08/25 15:39 Heparin Sod Inj 5000 Unit/Ml Vial SC 08/20/25 13:59 5,000 unit Q8HR MARCELLA Administration Ondansetron HCl 4 mg 08/05/25 18:38 Ondansetron Inj 2 Mg/Ml Inj 2 Ml IVP 09/04/25 18:37 Q6H PRN NAUSEA OR VOMITING Protocol Tamsulosin HCl 0.4 mg 08/07/25 09:00 08/08/25 08:53 Tamsulosin Hcl 0.4 Mg Capsule PO 09/06/25 08:59 Not Given Q24H MARCELLA Plan Escobar Perez 84M pmhx significant for HTN, 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 #Acute CVA L basal ganglia, L parietal and L occipital lobes Patient presented with altered mental status with right hemineglect and decreased strength in right upper extremity with last known well 12:30 PM day of admission. Head CT showed no acute hemorrhage mass effect or midline shift. Head neck CTA showed no significant arterial stenosis or large cerebral vessel arterial occlusion or thrombus Brain MRI showed multiple embolic type acute infarcts of left basal ganglia, left occipital lobe left parietal lobe EEG normal with no focal, diffuse, or generalized abnormalities 08/06/25 Echo showed Aortic root is normal in dimension. Aortic valve showed evidence of heavy calcification with moderate to severe calcific aortic stenosis aortic velocity 3.3 m/s. Peak aortic valve gradient 44 mmHg mean gradient of 23 mmHg. There is evidence of mild aortic valve regurgitation. Normal-sized left ventricle with normal left lateral wall motion ejection fraction of 65%. The right ventricle is normal in size and systolic function. Mild mitral annulus calcification and thickening of the mitral leaflets with mild mitral regurgitation. Mild tricuspid regurgitation with normal PA pressure. Plan: - ASA and Plavix for 21 days, and then aspirin only following. -Atorvastatin 80 mg qhs - F/u JULIAN - Neurochecks q4h - Aspiration precautions, head of bed elevated 30 deg - PT recommends SNF at discharge #HIPOLITO on CKDIIIb #Moderate to severe aortic stenosis #Mild mitral regurgitation #Normocytic anemia #HTN #Chronic Coccidioides pulmonary infection Primary care team to manage above conditions and ongoing care needs. The patient's management plan was discussed with my attending physician Dr. Diaz. Adele Nolasco, PGY-2 Attending Provider Attestation/Addendum I personally have seen and examined patient at the bedside and agree with resident's findings, assessment and plan of care. Patient continues to be aphasic and right hemiparetic secondary to right hemispheric infarct, suggestive of embolic pattern. Follow-up with transesophageal echocardiogram results continue with aspirin and Plavix for 21 days followed by Plavix alone along with statin for now unless the JULIAN shows pathology needing anticoagulation. Continue with physical therapy and speech therapy as he makes progress
[2025-08-08] MEDS: ATORVASTATIN CALCIUM 20 MG TABLET 80 MG PO (20:28)
[2025-08-08] MEDS: ACETAMINOPHEN 325 MG TABLET 650 MG PO (20:29)
[2025-08-08] MEDS: OLANZapine INJ 5 MG, Sterile Water 2.1 ML IM (23:42)
[2025-08-09] VITALS (7 sets, daily range): BP systolic 116–141; BP diastolic 71–80; PULSE 61–80; RESP 16–19; TEMP 36.1–36.6; O2SAT 97–99
[2025-08-09 05:29] LABS: Basophils # (Auto) 0.0 Thou/mm3 (0.0-0.2); Basophils % (Auto) 0 % (0-2.5); Eosinophils # (Auto) 0.1 Thou/mm3 (0.0-0.5); Eosinophils % (Auto) 2 % (0-10); Hematocrit 28.8 % (41.0-53.0); Hemoglobin 9.7 g/dL (13.5-16.0); Immature Granulocytes Auto 0.03 Thou/mm3 (0.00-0.00); Lymphocytes # (Auto) 0.7 Thou/mm3 (1.0-4.8); Lymphocytes % (Auto) 16 % (10-50); Mean Corpuscular HGB Conc 33.7 g/dl (31.0-37.0); Mean Corpuscular Hemoglobin 32.7 pg (25.0-35.0); Mean Corpuscular Volume 97 fL (80-100); Monocytes # (Auto) 0.6 Thou/mm3 (0.0-0.8); Monocytes % (Auto) 14 % (0-12); Neutrophils # (Auto) 2.8 Thou/mm3 (1.8-7.7); Neutrophils % (Auto) 67 % (37-80); Nucleated Red Blood Cell # 0.00 Thou/mm3 (0.00-0.00); Nucleated Red Blood Cell % 0 /100 WBC (0); Platelet Count 129 Thou/mm3 (140-440); RDW Standard Deviation 49.3 fL (35.1-43.9); Red Blood Count 2.97 Miln/mm3 (4.50-5.90); White Blood Count 4.2 Thou/mm3 (3.8-10.6)
[2025-08-09] MEDS: HEPARIN SOD INJ 5000 UNIT/ML VIAL SC ×2 (05:34→13:47)
[2025-08-09 05:42] LABS: Alanine Aminotransferase 24 U/L (10-49); Albumin, Serum 3.2 gm/dL (3.4-4.8); Albumin/Globulin Ratio 1.7 (1.2-2.2); Alkaline Phosphatase 94 U/L (46-116); Anion Gap 11 (7-16); Aspartate Amino Transferase 32 U/L (0-34); BUN/Creatinine Ratio 18 Ratio (12-20); Bilirubin,Total 0.5 mg/dL (0.3-1.2); Blood Urea Nitrogen 28 mg/dL (9-23); Calcium 8.4 mg/dL (8.3-10.6); Calcium (Corrected) 9.0 mg/dL (8.5-10.1); Carbon Dioxide 22.5 mMol/L (20.0-31.0); Chloride 115 mMol/L (98-107); Creatinine (Component) 1.6 mg/dL (0.6-1.3); Estimated Creatinine Clearance 24.8 mL/min (>60); Globulin 1.9 gm/dL (2.3-3.5); Glucose 93 mg/dL (74-106); Magnesium 1.8 mg/dL (1.6-2.6); Osmolality,Calculated 299 (275-295); Phosphorous 2.9 mg/dL (2.4-5.1); Potassium 4.3 mMol/L (3.4-5.1); Sodium 148 mMol/L (136-145); Total Protein 5.1 gm/dL (5.7-8.2); eGFR 42 See Note
[2025-08-09] MEDS: Magnesium Sulfate 4 GM Ivpb 4 GM/50 ML BAG IV (08:07)
[2025-08-09] MEDS: ASPIRIN 81 MG CHEW PO (08:25)
[2025-08-09] MEDS: FLUCONAZOLE 100 MG TABLET 200 MG PO (08:25)
[2025-08-09] MEDS: TAMSULOSIN HCL 0.4 MG CAPSULE PO (08:25)
[2025-08-09] MEDS: CLOPIDOGREL BISULFATE 75 MG TABLET PO (08:25)
--- NOTE | 2025-08-09 08:37 | PD.RESPRO ---
Documentation for date of: 08/09/25 Subjective Subjective Interval history: Patient was seen and assessed at bedside. Patient was agitated overnight, was given olanzipine around 11PM and was still drowsy this morning. Was not cooperative with questions. BP 127/76 in AM, systolics ranging in 110-120s. Well controlled on amlodipine and atenolol. HR 70-80s. In sinus rhythm on telemetry. Magnesium 1.8, recommend repletion. Completed JULIAN yesterday. Negative bubble study with no evidence of any PFO or ASD. No LA or DARIÁN thrombus. Severe aortic stenosis noted with V max 3.9 m/s, mean PG of 36 mmHg and a peak PG of 63 mmHg. Severe calcification of aortic valve. Normal LV size and function with a lw normal EF around 50-55%. Normal RV size and function. Mild to moderate CO and MR. Mild TR. No pericardial effusion. Exam Vital Signs Temp Pulse Resp BP Pulse Ox O2 Del Method O2 Flow Rate 97.0 F 65 18 116/72 97 Room Air 3 08/09/25 04:00 08/09/25 08:24 08/09/25 04:00 08/09/25 08:24 08/09/25 04:00 08/09/25 04:00 08/08/25 14:15 Narrative Exam GENERAL: No acute distress, drowsy. Uncooperative. Unable to answer to answer questions appropriately in current state. Cachetic. HEENT: NC/AT, mucous membranes moist, bilateral sclera anicteric CARDIOVASCULAR: regular rate and rhythm, S1/S2 present, 4/6 systolic murmur heard best R 2nd L intercostal space radiating to carotids PULMONARY: clear to auscultation bilaterally, no rales/rhonchi/wheezes ABDOMINAL: soft, non-tender, non-distended, no rebound/guarding, bowel sounds present EXTREMITIES: no peripheral edema SKIN: warm and dry, intact, no rashes NEURO: Unable to assess due to drowsy state. Objective Labs 08/09/25 04:24 08/09/25 04:24 Labs: Laboratory Results - last 24 hr 08/09/25 04:24 WBC 4.2 RBC 2.97 L Hgb 9.7 L Hct 28.8 L MCV 97 MCH 32.7 MCHC 33.7 RDW Std Deviation 49.3 H Plt Count 129 L Neut % (Auto) 67 Lymph % (Auto) 16 [place] % (Auto) 14 H Eos % (Auto) 2 Baso % (Auto) 0 Neut # (Auto) 2.8 Lymph # (Auto) 0.7 L [place] # (Auto) 0.6 Eos # (Auto) 0.1 Baso # (Auto) 0.0 Immature Gran # (Auto) 0.03 H Absolute Nucleated RBC 0.00 Immature Gran % 1 H Nucleated RBC % 0 Sodium 148 H Potassium 4.3 Chloride 115 H Carbon Dioxide 22.5 Anion Gap 11 BUN 28 H Creatinine 1.6 H Estim Creat Clear Calc 24.8 L eGFR 42 L BUN/Creatinine Ratio 18 Glucose 93 Calculated Osmolality 299 H Calcium 8.4 Corrected Calcium 9.0 Phosphorus 2.9 Magnesium 1.8 Total Bilirubin 0.5 AST 32 ALT 24 Alkaline Phosphatase 94 Total Protein 5.1 L Albumin 3.2 L Globulin 1.9 L Albumin/Globulin Ratio 1.7 Quality Measures Quality Measures sepsis Current suspected stage: ruled out Possible source: unknown Blood cultures ordered: yes Antibiotic ordered: No Advance care planning discussed with:: child Assessment & Plan Assessment Current Active Medications: Generic Name Dose Route Start Last Admin Trade Name Freq PRN Reason Stop Dose Admin Acetaminophen 650 mg 08/05/25 19:48 08/08/25 20:29 Acetaminophen 325 Mg Tablet PO 09/04/25 19:47 650 mg Q6HR PRN Administration Fever > 99.9 Amlodipine Besylate 2.5 mg 08/07/25 21:00 08/08/25 20:32 Amlodipine Besylate 2.5 Mg Tablet PO 09/06/25 20:59 2.5 mg HS MARCELLA Administration Aspirin 81 mg 08/08/25 09:00 08/09/25 08:25 Aspirin 81 Mg Chew PO 09/05/25 08:59 81 mg DAILY MARCELLA Administration Atenolol 50 mg 08/07/25 09:00 08/09/25 08:24 Atenolol 25 Mg Tablet PO 09/06/25 08:59 50 mg DAILY MARCELLA Administration Atorvastatin Calcium 80 mg 08/08/25 21:00 08/08/25 20:28 Atorvastatin Calcium 20 Mg Tablet PO 09/07/25 20:59 80 mg HS MARCELLA Administration Clopidogrel Bisulfate 75 mg 08/06/25 09:00 08/09/25 08:25 Clopidogrel Bisulfate 75 Mg Tablet PO 09/05/25 08:59 75 mg DAILY MARCELLA Administration Fluconazole 200 mg 08/08/25 09:00 08/09/25 08:25 Fluconazole 100 Mg Tablet PO 08/15/25 08:59 200 mg BID MARCELLA Administration Heparin Sodium (Porcine) 5,000 unit 08/06/25 14:00 08/09/25 05:34 Heparin Sod Inj 5000 Unit/Ml Vial SC 08/20/25 13:59 5,000 unit Q8HR MARCELLA Administration Magnesium Sulfate 4 gm in 50 mls @ 12.5 mls/hr 08/09/25 07:30 08/09/25 08:07 Magnesium Sulfate Ivpb IV 08/09/25 11:29 12.5 mls/hr X1 ONE Administration Ondansetron HCl 4 mg 08/05/25 18:38 Ondansetron Inj 2 Mg/Ml Inj 2 Ml IVP 09/04/25 18:37 Q6H PRN NAUSEA OR VOMITING Protocol Tamsulosin HCl 0.4 mg 08/07/25 09:00 08/09/25 08:25 Tamsulosin Hcl 0.4 Mg Capsule PO 09/06/25 08:59 0.4 mg Q24H MARCELLA Administration Plan Patient is an 84 year old male with past medical history of HTN, 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 Cardiology consulted for JULIAN for possible cardiac origin of CVA. #Acute CVA L basal ganglia, L parietal and L occipital lobes #Small old infarct left cerebellar hemisphere right basal ganglia (08/05/25) Presented with altered mental status with right hemineglect and decreased strength in right upper extremity with last known well 12:30 PM day of admission. Head CT 08/05 showed small old infarct left cerebellar hemisphere right basal ganglia but negative for acute infarct. Head neck CTA 08/06 showed no significant arterial stenosis or large cerebral vessel arterial occlusion or thrombus. Brain MRI 08/06 showed multiple embolic type acute infarcts of left basal ganglia, left occipital lobe left parietal lobe. EEG normal with no focal, diffuse, or generalized abnormalities 08/06/25 Echo showed aortic root is normal in dimension. Aortic valve showed evidence of heavy calcification with moderate to severe calcific aortic stenosis aortic velocity 3.3 m/s. Peak aortic valve gradient 44 mmHg mean gradient of 23 mmHg. There is evidence of mild aortic valve regurgitation. Normal-sized left ventricle with normal left lateral wall motion ejection fraction of 65%. The right ventricle is normal in size and systolic function. Mild mitral annulus calcification and thickening of the mitral leaflets with mild mitral regurgitation. Mild tricuspid regurgitation with normal PA pressure. 08/08/25 JULIAN showed negative bubble study with no evidence of any PFO or ASD. No LA or ADRIÁN thrombus. Severe aortic stenosis noted with V max 3.9 m/s, mean PG of 36 mmHg and a peak PG of 63 mmHg. Severe calcification of aortic valve. Normal LV size and function with a low normal EF around 50-55%. Normal RV size and function. Mild to moderate CO and MR. Mild TR. No pericardial effusion. Plan: - Negative for PFO or ASD and no LA or ADRIÁN thrombus. Possible that patient may have had calcified fragments break off from heavy calcified aortic valve in setting of increased valve pressure. - Continue atorvastatin 80 mg nightly - Continue other medical management recommendations per neurology #Severe aortic stenosis with severe calcification #Mild mitral regurgitation #Low-normal EF 50-55% Denies episodes of syncope in the past. Has been feeling fatigued, but nothing unusual per patient. Unable to recall if sees a dry kiln feeder. On exam, patient has 4/6 systolic murmur heard best R 2nd L intercostal space radiating to carotids. 08/06/25 Echo showed Aortic root is normal in dimension. Aortic valve showed evidence of heavy calcification with moderate to severe calcific aortic stenosis aortic velocity 3.3 m/s. Peak aortic valve gradient 44 mmHg mean gradient of 23 mmHg. There is evidence of mild aortic valve regurgitation. Normal-sized left ventricle with normal left lateral wall motion ejection fraction of 65%. The right ventricle is normal in size and systolic function. Mild mitral annulus calcification and thickening of the mitral leaflets with mild mitral regurgitation. Mild tricuspid regurgitation with normal PA pressure. 08/08/25 JULIAN showed negative bubble study with no evidence of any PFO or ASD. No LA or ADRIÁN thrombus. Severe aortic stenosis noted with V max 3.9 m/s, mean PG of 36 mmHg and a peak PG of 63 mmHg. Severe calcification of aortic valve. Normal LV size and function with a low normal EF around 50-55%. Normal RV size and function. Mild to moderate CO and MR. Mild TR. No pericardial effusion. ROPE score 2 Plan: - No indication for emergent valve replacement - Recommend outpatient for further management and work up for possible TAVR #HTN Per history. At home taking amlodipine 2.5 mg QD and atenolol 50 mg QD. Systolic in 100-110s. Plan: - Continue home amlodpipine 2.5 mg QD and atenolol 50 mg QD. #HIPOLITO on CKDIIIb #Normocytic anemia #Chronic Coccidioides pulmonary infection Patient plan of care was discussed with the attending physician, Dr. Lam . Mara Martínez, PGY-1 Attending Provider Attestation/Addendum I have personally seen and examined the patient separately on the above date of service and discussed the plan of care with the resident. I reviewed the resident Dr. Mara Martínez consultation progress note and agree with the resident findings and plan in the note above and have also edited the documentation to reflect my findings and plan. Curry Lam M.D. Interventional Cardiology
--- NOTE | 2025-08-09 09:07 | PD.RESPRO ---
Documentation for date of: 08/09/25 Exam Vital Signs Temp Pulse Resp BP Pulse Ox O2 Del Method O2 Flow Rate 97.0 F 65 18 116/72 97 Room Air 3 08/09/25 04:00 08/09/25 08:24 08/09/25 04:00 08/09/25 08:24 08/09/25 04:00 08/09/25 04:00 08/08/25 14:15 Narrative Exam GENERAL: AOx2 not to time, no acute distress, able to speak in full sentences, drowsy HEENT: NC/AT, mucous membranes moist, bilateral sclera anicteric CARDIOVASCULAR: regular rate and rhythm, S1/S2 present, 3/6 systolic murmur heard best R 2nd L intercostal space radiating to carotids PULMONARY: clear to auscultation bilaterally, no rales/rhonchi/wheezes ABDOMINAL: soft, non-tender, non-distended, no rebound/guarding, bowel sounds present EXTREMITIES: no peripheral edema SKIN: warm and dry, intact, no rashes NEURO: CN II-XII grossly intact, no focal deficits, alert, following commands, 4/5 RUE flexion and hospital account liaison strength, 5/5 LUE flexion and hospital account liaison strength, 4/5 R hip flexion, 5/5 L hip flexion Objective Labs 08/09/25 04:24 08/09/25 04:24 Labs: Laboratory Results - last 24 hr 08/09/25 04:24 WBC 4.2 RBC 2.97 L Hgb 9.7 L Hct 28.8 L MCV 97 MCH 32.7 MCHC 33.7 RDW Std Deviation 49.3 H Plt Count 129 L Neut % (Auto) 67 Lymph % (Auto) 16 [place] % (Auto) 14 H Eos % (Auto) 2 Baso % (Auto) 0 Neut # (Auto) 2.8 Lymph # (Auto) 0.7 L [place] # (Auto) 0.6 Eos # (Auto) 0.1 Baso # (Auto) 0.0 Immature Gran # (Auto) 0.03 H Absolute Nucleated RBC 0.00 Immature Gran % 1 H Nucleated RBC % 0 Sodium 148 H Potassium 4.3 Chloride 115 H Carbon Dioxide 22.5 Anion Gap 11 BUN 28 H Creatinine 1.6 H Estim Creat Clear Calc 24.8 L eGFR 42 L BUN/Creatinine Ratio 18 Glucose 93 Calculated Osmolality 299 H Calcium 8.4 Corrected Calcium 9.0 Phosphorus 2.9 Magnesium 1.8 Total Bilirubin 0.5 AST 32 ALT 24 Alkaline Phosphatase 94 Total Protein 5.1 L Albumin 3.2 L Globulin 1.9 L Albumin/Globulin Ratio 1.7 Quality Measures Quality Measures sepsis Possible source: unknown Blood cultures ordered: yes Assessment & Plan Assessment Current Active Medications: Generic Name Dose Route Start Last Admin Trade Name Freq PRN Reason Stop Dose Admin Acetaminophen 650 mg 08/05/25 19:48 08/08/25 20:29 Acetaminophen 325 Mg Tablet PO 09/04/25 19:47 650 mg Q6HR PRN Administration Fever > 99.9 Amlodipine Besylate 2.5 mg 08/07/25 21:00 08/08/25 20:32 Amlodipine Besylate 2.5 Mg Tablet PO 09/06/25 20:59 2.5 mg HS MARCELLA Administration Aspirin 81 mg 08/08/25 09:00 08/09/25 08:25 Aspirin 81 Mg Chew PO 09/05/25 08:59 81 mg DAILY MARCELLA Administration Atenolol 50 mg 08/07/25 09:00 08/09/25 08:24 Atenolol 25 Mg Tablet PO 09/06/25 08:59 50 mg DAILY MARCELLA Administration Atorvastatin Calcium 80 mg 08/08/25 21:00 08/08/25 20:28 Atorvastatin Calcium 20 Mg Tablet PO 09/07/25 20:59 80 mg HS MARCELLA Administration Clopidogrel Bisulfate 75 mg 08/06/25 09:00 08/09/25 08:25 Clopidogrel Bisulfate 75 Mg Tablet PO 09/05/25 08:59 75 mg DAILY MARCELLA Administration Fluconazole 200 mg 08/08/25 09:00 08/09/25 08:25 Fluconazole 100 Mg Tablet PO 08/15/25 08:59 200 mg BID MARCELLA Administration Heparin Sodium (Porcine) 5,000 unit 08/06/25 14:00 08/09/25 05:34 Heparin Sod Inj 5000 Unit/Ml Vial SC 08/20/25 13:59 5,000 unit Q8HR MARCELLA Administration Magnesium Sulfate 4 gm in 50 mls @ 12.5 mls/hr 08/09/25 07:30 08/09/25 08:07 Magnesium Sulfate Ivpb IV 08/09/25 11:29 12.5 mls/hr X1 ONE Administration Ondansetron HCl 4 mg 08/05/25 18:38 Ondansetron Inj 2 Mg/Ml Inj 2 Ml IVP 09/04/25 18:37 Q6H PRN NAUSEA OR VOMITING Protocol Tamsulosin HCl 0.4 mg 08/07/25 09:00 08/09/25 08:25 Tamsulosin Hcl 0.4 Mg Capsule PO 09/06/25 08:59 0.4 mg Q24H MARCELLA Administration Plan Edalberto Perez 84M pmhx significant for HTN, 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 #Acute CVA L basal ganglia, L parietal and L occipital lobes Patient presented with altered mental status with right hemineglect and decreased strength in right upper extremity with last known well 12:30 PM day of admission. Head CT showed no acute hemorrhage mass effect or midline shift. Head neck CTA showed no significant arterial stenosis or large cerebral vessel arterial occlusion or thrombus Brain MRI showed multiple embolic type acute infarcts of left basal ganglia, left occipital lobe left parietal lobe EEG normal with no focal, diffuse, or generalized abnormalities 08/06/25 TTE showed Aortic root is normal in dimension. Aortic valve showed evidence of heavy calcification with moderate to severe calcific aortic stenosis aortic velocity 3.3 m/s. Peak aortic valve gradient 44 mmHg mean gradient of 23 mmHg. There is evidence of mild aortic valve regurgitation. Normal-sized left ventricle with normal left lateral wall motion ejection fraction of 65%. The right ventricle is normal in size and systolic function. Mild mitral annulus calcification and thickening of the mitral leaflets with mild mitral regurgitation. Mild tricuspid regurgitation with normal PA pressure. Carotid US: L and R internal carotid 0-10% stenosis JULIAN showed no PFO Plan: - Neurology consulted, recs appreciated: ASA and Plavix for 21 days, and then Plavix only following??. Atorvastatin 80 mg qhs - Neurochecks q4h - Aspiration precautions, head of bed elevated 30 deg - PT recommends SNF at discharge #HIPOLITO on CKDIIIb On admission Cr 1.9 and BUN 28, with baseline 1.2-1.4. Admission UA trace protein, 1+ blood, 17 RBC. On chart review, patient had 3+ proteinuria in 2020. CK 326. Likely insult from acute CVA vs prerenal dehydration vs consequence of elevated CK 08/08 s/p 1L LR Plan: - Avoid nephrotoxic medication, renally dose medication - CTM Cr #Moderate to severe aortic stenosis #Mild mitral regurgitation Patient denies episodes of syncope in the past. Has been feeling fatigued, but nothing unusual per patient. Unable to recall if sees a blurb writer. 08/06/25 Echo showed Aortic root is normal in dimension. Aortic valve showed evidence of heavy calcification with moderate to severe calcific aortic stenosis aortic velocity 3.3 m/s. Peak aortic valve gradient 44 mmHg mean gradient of 23 mmHg. There is evidence of mild aortic valve regurgitation. Normal-sized left ventricle with normal left lateral wall motion ejection fraction of 65%. The right ventricle is normal in size and systolic function. Mild mitral annulus calcification and thickening of the mitral leaflets with mild mitral regurgitation. Mild tricuspid regurgitation with normal PA pressure. Plan: - Cardiology consulted, recs appreciated - Unlikely need for emergent surgery and intervention at this time #Normocytic anemia Admission Hgb 10.5, stable. MCV 98. Likely CORA with iron low 43, TIBC low 187, Iron sat wnl 22, unsat iron binding low 144 Plan: - Recommend outpatient iron supplementation and follow up #HTN Per history. At home taking amlodipine 2.5 mg QD and atenolol 50 mg QD Plan: - Continue home amlodipine 2.5 mg QD and atenolol 50 mg QD. #Chronic Coccidioides pulmonary infection On fluconazole 200 mg BID Plan: - Continue home fluconazole 200 mg BID Hospital management: Lines: PIV Diet: NPO iso JULIAN Bowel: not indicated GI prophylaxis: not indicated DVT prophylaxis: heparin q8h Disposition: tele for CVA workup CODE STATUS: DNR Plan of care discussed with attending Dr. Delatorre, and PGY-2 Dr. Diego Dow. Mirna Martínez, DO PGY-1 Internal Medicine
--- NOTE | 2025-08-09 09:47 | ESDS_ITS ---
<Statement entered by Aquilino Dow MD - 08/09/25 14:54> Patient was seen and evaluated at bedside this morning. No acute overnight events. Patient remained stable throughout hospital stay and JULIAN did not show any PFO or any ADRIÁN thrombus. At this time patient stable enough to be discharged to intermediate facility. Note reviewed and agree with resident's care plan as documented except as noted above. Case disclosed with attending Dr. Juan Ramon Dow PGY2 Disclaimer: Even though this this note was dictated by speech recognition and even though it was carefully revised there may still be minor errors in speck dyer due to voice recognition software. Planned Discharge Date 08/09/25 DS: Providers Provider Date of admission: 08/05/25 18:38 Primary care physician: Physician No Primary/Family Admitting Provider: Farhat Adams MD Attending Provider on Admission: Jose Delatorre MD Consults: 08/05/25 16:29 Consult to Neurology / Tele-Neurology Routine Comment: Consulting Provider: [facility] 08/05/25 19:46 Referral Registered Dietitian Routine Comment: cachexia 08/05/25 19:47 Consult to Neurology / Tele-Neurology Routine Comment: Consulting Provider: Maikel Diaz Referral Physical Therapy Routine Comment: Physician Instructions: Referral Speech Therapy Routine Comment: [facility]ity Referral - Safety Routine Comment: Positive screening for safety needs. Health Equity Referral - Utilities Routine Comment: Positive screening for utility assistance needs. 08/06/25 05:53 Health Equity Referral - Knowledge Deficit Routine Comment: Positive screening for knowledge deficit needs. 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 Patient underwent stroke protocol and MRI showed multiple embolic type acute infarcts of L basal ganglia, L occipital lobe and L parietal lobe. JULIAN showed moderate to severe aortic stenosis, mild mitral regurgitation, no PFO and no LA/ADRIÁN thrombus present. Carotid US showed 0-10% stenosis in both internal carotid arteries. Patient was treated with ASA and Plavix. Patient was also found to have HIPOLITO likely 2/2 acute CVA and prerenal dehydration, which improved with fluids on discharge. On discharge, labs and vitals reviewed to be stable and patient is ready to be discharged to SNF with improvement in deficits compared to admission. Imaging: Head CT showed no acute hemorrhage mass effect or midline shift. Head neck CTA showed no significant arterial stenosis or large cerebral vessel arterial occlusion or thrombus Brain MRI showed multiple embolic type acute infarcts of left basal ganglia, left occipital lobe left parietal lobe EEG normal with no focal, diffuse, or generalized abnormalities 08/06/25 TTE showed Aortic root is normal in dimension. Aortic valve showed evidence of heavy calcification with moderate to severe calcific aortic stenosis aortic velocity 3.3 m/s. Peak aortic valve gradient 44 mmHg mean gradient of 23 mmHg. There is evidence of mild aortic valve regurgitation. Normal-sized left ventricle with normal left lateral wall motion ejection fraction of 65%. The right ventricle is normal in size and systolic function. Mild mitral annulus calcification and thickening of the mitral leaflets with mild mitral regurgitation. Mild tricuspid regurgitation with normal PA pressure. 08/08/25 Carotid US showed right and left internal carotid artery both demonstrate 0 to 10% stenosis. 08/08/25 JULIAN Negative bubble study with no evidence of any PFO or ASD. There was no LA or ADRIÁN thrombus. Severe aortic stenosis noted with V-max 3.9 m/s, mean PG of 36 mmHg and a peak PG of 63mmHg. Severe calcification of aortic valve. Normal LV size and functino with a low mornal EF of around 50-55%. Normal RV size and function. Mild to moderate MA and MR. Mild TR. No pericardial effusion. Discharge Recommendations: - Please take all medications as prescribed - START ASA 81 mg daily and Plavix 75 mg daily for 21 days, then only continue taking Plavix - START atorvastatin 80 mg daily - Continue home medications of atenolol 50 mg daily, amlodipine 2.5 mg nightly, fluconazole 200 mg twice daily and tamsulosin 0.4 mg daily. - Continue all home medications except as above - Please follow up with your PCP within one week of discharge - Please follow up with book packer within one week of discharge - Please follow up with neurologist within one week of discharge - If your symptoms worsen, please seek immediate medical attention and return to your nearest emergency room. - If you do not have a PCP, you may follow up at the [facility] at [address], [facility] [address], Hospital Diagnoses: #Acute CVA L basal ganglia, L parietal and L occipital lobes #HIPOLITO on CKDIIIb #Moderate to severe aortic stenosis #Mild mitral regurgitation #Normocytic anemia #HTN #Chronic Coccidioides pulmonary infection Plan and care discussed with attending Dr. Delatorre and PGY-2 Dr. Cortez. Mirna Martínez, DO Internal Medicine, PGY-1 Status at Discharge Cognitive/behavioral status at discharge: Stable Time Spent with Patient Time attestation: Total time spent providing and/or coordinating discharge services: Time spent: Greater than 30 minutes Exam Vital Signs Temp Pulse Resp BP Pulse Ox O2 Del Method O2 Flow Rate 97.1 F 65 16 116/72 97 Room Air 3 08/09/25 08:00 08/09/25 08:24 08/09/25 08:00 08/09/25 08:24 08/09/25 08:00 08/09/25 08:00 08/08/25 14:15 Narrative Exam GENERAL: AOx2 not to time, no acute distress, able to speak in full sentences HEENT: NC/AT, mucous membranes moist, bilateral sclera anicteric CARDIOVASCULAR: regular rate and rhythm, S1/S2 present, 3/6 systolic murmur heard best R 2nd L intercostal space radiating to carotids PULMONARY: clear to auscultation bilaterally, no rales/rhonchi/wheezes ABDOMINAL: soft, non-tender, non-distended, no rebound/guarding, bowel sounds present EXTREMITIES: no peripheral edema SKIN: warm and dry, intact, no rashes NEURO: CN II-XII grossly intact, no focal deficits, alert, following commands, 4/5 RUE flexion and remote sensing specialist strength, 5/5 LUE flexion and remote sensing specialist strength, 4/5 R hip flexion, 5/5 L hip flexion Discharge Plan Plan Patient Disposition: Xfer Skilled Nsg Fac (SNF) Disposition Comment: [facility] Patient condition on transfer: Stable Care Plan Goals: Please follow-up with primary care physician within 5 days of admission Please follow-up with neurology within 5 to 7 days upon discharge Continue taking aspirin and Plavix until August 28 and afterwards discontinue the aspirin and continue taking Plavix daily. Continue taking atorvastatin 80 mg at bedtime Continue taking all other home medications as prescribed Please come back to the ER if symptoms persist or worsen. Prescriptions/Referrals Prescriptions/Med Rec: New aspirin 81 mg capsule 81 mg PO QDAY Qty: 19 0RF clopidogrel 75 mg tablet 75 mg PO QDAY Qty: 30 0RF atorvastatin [Lipitor] 80 mg tablet 80 mg PO QPM Qty: 30 0RF Continued atenolol 50 MG tablet 50 mg PO DAILY Qty: 0 fluconazole 200 mg tablet 200 mg PO DAILY Patient Comments: TAKE 1 TABLET BY MOUTH TWICE A DAY tamsulosin 0.4 mg capsule 0.4 mg PO Q24H Patient Comments: TAKE 1 CAPSULE BY MOUTH EVERY DAY loperamide 2 mg capsule 2 mg PO BID PRN (Reason: loose stool) Changed amlodipine 2.5 mg tablet 2.5 mg PO HS Qty: 30 0RF Patient Comments: TAKE 1 TABLET BY MOUTH EVERY DAY IN THE EVENING Referrals: No Primary/Family,Physician [Primary Care Provider] Patient/Caregiver Discharge Instructions Other Discharge Activity Instructions:: Please follow-up with primary care physician within 5 days of admission Please follow-up with neurology within 5 to 7 days upon discharge Continue taking aspirin and Plavix until August 28 and afterwards discontinue the aspirin and continue taking Plavix daily. Continue taking atorvastatin 80 mg at bedtime Continue taking all other home medications as prescribed Please come back to the ER if symptoms persist or worsen. Education Materials: Stroke: Tips for Swallowing, Discharge Instructions for Stroke, Stroke Self Care After Print Language: Mosotho Stand Alone Forms: Alannah Award Info., Patient Portal Info Letter Discharge Order Discharge Orders: Discharge (Routine); Ordered 08/09/25 Ordered By: Aquilino Dow Quality Discharge Quality Measures VTE prophylaxis Attestestation Attestation I have examined the patient, reviewed labs and imaging findings, discussed the case with the resident(s), and reviewed entered orders. I agree with the plan of care as outlined in this note. Time Spent: [address] Juan Ramon MD
--- NOTE | 2025-08-09 12:00 | PC.NURSE ---
Notified Dr. Estevez, patient's IV was not accessible anymore. Per it is ok if patient doesn't have another IV site access d/t patient being discharged today.
--- NOTE | 2025-08-09 17:45 | ESPR_ITS ---
Documentation for date of: 08/09/25 Subjective Subjective Interval history: Patient examined at bedside. Was very somnolent at beginning of exam but improved and became more alert. Still has aphasia but improved since yesterday. Patient's [id number] was at bedside who also stated that she has noticed improvement since admission. JULIAN was negative for any PFO. Strength 5 out of 5 in upper left, 3/5 in upper right, dysmetria on finger to nose test with right hand. Patient to be discharged with aspirin and Plavix. Continue both agents for 21 days. Continue Plavix indefinitely. Exam Vital Signs Temp Pulse Resp BP Pulse Ox O2 Del Method O2 Flow Rate 97.8 F 66 18 141/80 H 98 Room Air 3 08/09/25 17:24 08/09/25 17:24 08/09/25 17:24 08/09/25 17:24 08/09/25 17:24 08/09/25 17:24 08/08/25 14:15 Narrative Exam GENERAL APPEARANCE: Well hydrated, well-nourished in no acute distress. HEENT: Normocephalic, atraumatic, extraocular movements intact. Pupils: Equal reacting to light NECK: Supple, no JVD or bruits. CARDIOVASULAR: Heart: S1, S2 heard, regular without S3-S4 or murmur no rubs or gallops. LUNGS/CHEST: Clear to auscultation bilaterally. No rails, rhonchi, or wheezing. Normal inspection. ABDOMEN: Soft, nontender, with normal bowel sounds. No pulsatile masses. No rebound, rigidity, or guarding. Normal inspection and palpation. EXTREMITIES: Normal inspection and palpation. No edema, clubbing or cyanosis. SKIN: Warm and dry without rashes. Normal inspection. MUSCULOSKELETAL: No cervical, thoracic, lumbar or midline bony tenderness. Normal inspection. NEURO: Alert, awake and aphasic--improved. Cranial nerves: II through XII grossly intact. Speech and language: Aphasic. Motor system: Tone and bulk: Normal: Strength: Significant right with neglect. deep tendon reflexes: 2+ bilaterally symmetrical. Aox3 PSYCHIATRIC: Normal mood and affect. Objective Labs 08/09/25 04:24 08/09/25 04:24 Labs: Laboratory Results - last 24 hr 08/09/25 04:24 WBC 4.2 RBC 2.97 L Hgb 9.7 L Hct 28.8 L MCV 97 MCH 32.7 MCHC 33.7 RDW Std Deviation 49.3 H Plt Count 129 L Neut % (Auto) 67 Lymph % (Auto) 16 [place] % (Auto) 14 H Eos % (Auto) 2 Baso % (Auto) 0 Neut # (Auto) 2.8 Lymph # (Auto) 0.7 L [place] # (Auto) 0.6 Eos # (Auto) 0.1 Baso # (Auto) 0.0 Immature Gran # (Auto) 0.03 H Absolute Nucleated RBC 0.00 Immature Gran % 1 H Nucleated RBC % 0 Sodium 148 H Potassium 4.3 Chloride 115 H Carbon Dioxide 22.5 Anion Gap 11 BUN 28 H Creatinine 1.6 H Estim Creat Clear Calc 24.8 L eGFR 42 L BUN/Creatinine Ratio 18 Glucose 93 Calculated Osmolality 299 H Calcium 8.4 Corrected Calcium 9.0 Phosphorus 2.9 Magnesium 1.8 Total Bilirubin 0.5 AST 32 ALT 24 Alkaline Phosphatase 94 Total Protein 5.1 L Albumin 3.2 L Globulin 1.9 L Albumin/Globulin Ratio 1.7 Quality Measures Quality Measures VTE prophylaxis Advance care planning discussed with:: child Assessment & Plan Assessment Current Active Medications: Generic Name Dose Route Start Last Admin Trade Name Freq PRN Reason Stop Dose Admin Acetaminophen 650 mg 08/05/25 19:48 08/08/25 20:29 Acetaminophen 325 Mg Tablet PO 09/04/25 19:47 650 mg Q6HR PRN Administration Fever > 99.9 Amlodipine Besylate 2.5 mg 08/07/25 21:00 08/08/25 20:32 Amlodipine Besylate 2.5 Mg Tablet PO 09/06/25 20:59 2.5 mg HS MARCELLA Administration Aspirin 81 mg 08/08/25 09:00 08/09/25 08:25 Aspirin 81 Mg Chew PO 09/05/25 08:59 81 mg DAILY MARCELLA Administration Atenolol 50 mg 08/07/25 09:00 08/09/25 08:24 Atenolol 25 Mg Tablet PO 09/06/25 08:59 50 mg DAILY MARCELLA Administration Atorvastatin Calcium 80 mg 08/08/25 21:00 08/08/25 20:28 Atorvastatin Calcium 20 Mg Tablet PO 09/07/25 20:59 80 mg HS MARCELLA Administration Clopidogrel Bisulfate 75 mg 08/06/25 09:00 08/09/25 08:25 Clopidogrel Bisulfate 75 Mg Tablet PO 09/05/25 08:59 75 mg DAILY MARCELLA Administration Fluconazole 200 mg 08/08/25 09:00 08/09/25 08:25 Fluconazole 100 Mg Tablet PO 08/15/25 08:59 200 mg BID MARCELLA Administration Heparin Sodium (Porcine) 5,000 unit 08/06/25 14:00 08/09/25 13:47 Heparin Sod Inj 5000 Unit/Ml Vial SC 08/20/25 13:59 5,000 unit Q8HR MARCELLA Administration Ondansetron HCl 4 mg 08/05/25 18:38 Ondansetron Inj 2 Mg/Ml Inj 2 Ml IVP 09/04/25 18:37 Q6H PRN NAUSEA OR VOMITING Protocol Tamsulosin HCl 0.4 mg 08/07/25 09:00 08/09/25 08:25 Tamsulosin Hcl 0.4 Mg Capsule PO 09/06/25 08:59 0.4 mg Q24H MARCELLA Administration Plan Escobar Perez 84M pmhx significant for HTN, 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 #Acute CVA L basal ganglia, L parietal and L occipital lobes Patient presented with altered mental status with right hemineglect and decreased strength in right upper extremity with last known well 12:30 PM day of admission. Head CT showed no acute hemorrhage mass effect or midline shift. Head neck CTA showed no significant arterial stenosis or large cerebral vessel arterial occlusion or thrombus Brain MRI showed multiple embolic type acute infarcts of left basal ganglia, left occipital lobe left parietal lobe EEG normal with no focal, diffuse, or generalized abnormalities 08/06/25 Echo showed Aortic root is normal in dimension. Aortic valve showed evidence of heavy calcification with moderate to severe calcific aortic stenosis aortic velocity 3.3 m/s. Peak aortic valve gradient 44 mmHg mean gradient of 23 mmHg. There is evidence of mild aortic valve regurgitation. Normal-sized left ventricle with normal left lateral wall motion ejection fraction of 65%. The right ventricle is normal in size and systolic function. Mild mitral annulus calcification and thickening of the mitral leaflets with mild mitral regurgitation. Mild tricuspid regurgitation with normal PA pressure. Plan: - ASA and Plavix for 21 days, and then aspirin only following. -Atorvastatin 80 mg qhs - Neurochecks q4h - Aspiration precautions, head of bed elevated 30 deg - PT recommends SNF at discharge #HIPOLITO on CKDIIIb #Moderate to severe aortic stenosis #Mild mitral regurgitation #Normocytic anemia #HTN #Chronic Coccidioides pulmonary infection Primary care team to manage above conditions and ongoing care needs. The patient's management plan was discussed with my attending physician Dr. Diaz. Adele Nolasco, PGY-2 Attending Provider Attestation/Addendum I independently reviewed the patient chart and agree with resident findings assessment and plan of care. Patient with left MCA infarction, negative workup including transthoracic cardiogram. Could not find the etiology for his embolic pattern of infarcts. At this point his CVA is considered cryptogenic. Will continue with aspirin, Plavix for 21 days followed by Plavix indefinitely with statin. He would need long-term Holter monitoring upon referral to cardiology as an outpatient. Patient is stable for discharge from neurology standpoint to a rehab for physical and speech therapy. Follow-up with neurology in 2 weeks
== END 2025-08-09 17:54 | disposition skilled nursing facility (03) | DRG 65 ==
LOC: SERX 14:07 → SERHOLD 18:57 → S2NX 21:50
PROVIDERS: Internal Medicine Cardiovascular Disease; Student in an Organized Health Care Education/Training Program; Admitting Provider Student in an Organized Health Care Education/Training Program; Emergency Provider Emergency Medicine; Visit Provider Student in an Organized Health Care Education/Training Program
PROC: (CPT 93312; principal; 2025-08-08 12:00)
DX: I63.89 Other cerebral infarction (principal); B38.1 Chronic pulmonary coccidioidomycosis; R41.4 Neurologic neglect syndrome; N17.9 Acute kidney failure, unspecified; G81.91 Hemiplegia, unspecified affecting right dominant side; G93.40 Encephalopathy, unspecified; R47.01 Aphasia; I12.9 Hypertensive chronic kidney disease with stage 1 through stage 4 chronic kidney disease, or unspecified chronic kidney disease; I87.2 Venous insufficiency (chronic) (peripheral); R29.707 NIHSS score 7; I44.0 Atrioventricular block, first degree; Z74.01 Bed confinement status; N40.0 Benign prostatic hyperplasia without lower urinary tract symptoms; D63.1 Anemia in chronic kidney disease; N18.32 Chronic kidney disease, stage 3b; R29.704 NIHSS score 4; Z66 Do not resuscitate; I08.0 Rheumatic disorders of both mitral and aortic valves; E86.0 Dehydration; G93.89 Other specified disorders of brain; Z79.02 Long term (current) use of antithrombotics/antiplatelets; Z79.82 Long term (current) use of aspirin; Z79.899 Other long term (current) drug therapy; Z90.49 Acquired absence of other specified parts of digestive tract; Z87.891 Personal history of nicotine dependence
CPT/HCPCS: 36415; 70450; 70496; 70498; 70544; 71045; 76705; 80053; 80061; 80307; 80329; 81001; 82140; 82550; 82728; 83036; 83540; 83550; 83605; 83735; 84100; 84145; 84436; 84443; 84484; 85025; 85610; 85730; 87040; 87086; 87502; 87811; 92507; 92523; 92610; 93005; 93306; 93312; 93880; 95816; 96361; 96365; 97162; 99152; 99285; A4216; A4649; J0696; J1644; J2250; J2358; J3010; J3475; J7120; Q9967; A9270; G0480; J2359

== ENCOUNTER → 2025-09-10 | Outpatient (CLI) | payer MEDICARE, BC, SELFPAY ==
[2025-09-10 16:26] LABS: Basophils # (Auto) 0.0 Thou/mm3 (0.0-0.2); Basophils % (Auto) 0 % (0-2.5); Eosinophils # (Auto) 0.2 Thou/mm3 (0.0-0.5); Eosinophils % (Auto) 6 % (0-10); Hematocrit 23.9 % (41.0-53.0); Immature Granulocytes Auto 0.01 Thou/mm3 (0.00-0.00); Lymphocytes # (Auto) 0.6 Thou/mm3 (1.0-4.8); Lymphocytes % (Auto) 18 % (10-50); Mean Corpuscular HGB Conc 31.4 g/dl (31.0-37.0); Mean Corpuscular Hemoglobin 31.4 pg (25.0-35.0); Mean Corpuscular Volume 100 fL (80-100); Monocytes # (Auto) 0.4 Thou/mm3 (0.0-0.8); Monocytes % (Auto) 11 % (0-12); Neutrophils # (Auto) 2.1 Thou/mm3 (1.8-7.7); Neutrophils % (Auto) 64 % (37-80); Nucleated Red Blood Cell # 0.00 Thou/mm3 (0.00-0.00); Nucleated Red Blood Cell % 0 /100 WBC (0); Platelet Count 132 Thou/mm3 (140-440); RDW Standard Deviation 63.8 fL (35.1-43.9); Red Blood Count 2.39 Miln/mm3 (4.50-5.90); White Blood Count 3.2 Thou/mm3 (3.8-10.6)
[2025-09-10 16:32] LABS: Hemoglobin 7.5 g/dL (13.5-16.0)
[2025-09-10 16:38] LABS: Albumin, Serum 3.3 gm/dL (3.4-4.8); Anion Gap 10 (7-16); BUN/Creatinine Ratio 16 Ratio (12-20); Blood Urea Nitrogen 31 mg/dL (9-23); Calcium 8.1 mg/dL (8.3-10.6); Calcium (Corrected) 8.7 mg/dL (8.5-10.1); Carbon Dioxide 20.3 mMol/L (20.0-31.0); Chloride 109 mMol/L (98-107); Creatinine (Component) 2.0 mg/dL (0.6-1.3); Glucose 106 mg/dL (74-106); Osmolality,Calculated 284 (275-295); Phosphorous 3.8 mg/dL (2.4-5.1); Potassium 5.4 mMol/L (3.4-5.1); Sodium 139 mMol/L (136-145); eGFR 32 See Note
== END | disposition home or self-care (01) ==
LOC: SLDO 15:26
PROVIDERS: PCP Internal Medicine; Referring Provider Internal Medicine; Visit Provider Internal Medicine
DX: I11.0 Hypertensive heart disease with heart failure (principal)
CPT/HCPCS: 36415; 80069; 85025

== ENCOUNTER → 2025-09-24 | Outpatient (CLI) | payer MEDICARE, BC, SELFPAY ==
[2025-09-24 16:27] LABS: Basophils # (Auto) 0.0 Thou/mm3 (0.0-0.2); Basophils % (Auto) 0 % (0-2.5); Eosinophils # (Auto) 0.1 Thou/mm3 (0.0-0.5); Eosinophils % (Auto) 2 % (0-10); Hematocrit 27.5 % (41.0-53.0); Immature Granulocytes Auto 0.02 Thou/mm3 (0.00-0.00); Lymphocytes # (Auto) 0.8 Thou/mm3 (1.0-4.8); Lymphocytes % (Auto) 17 % (10-50); Mean Corpuscular HGB Conc 30.5 g/dl (31.0-37.0); Mean Corpuscular Hemoglobin 30.7 pg (25.0-35.0); Mean Corpuscular Volume 100 fL (80-100); Monocytes # (Auto) 0.8 Thou/mm3 (0.0-0.8); Monocytes % (Auto) 17 % (0-12); Neutrophils # (Auto) 3.0 Thou/mm3 (1.8-7.7); Neutrophils % (Auto) 64 % (37-80); Nucleated Red Blood Cell # 0.00 Thou/mm3 (0.00-0.00); Nucleated Red Blood Cell % 0 /100 WBC (0); Platelet Count 158 Thou/mm3 (140-440); RDW Standard Deviation 57.8 fL (35.1-43.9); Red Blood Count 2.74 Miln/mm3 (4.50-5.90); White Blood Count 4.8 Thou/mm3 (3.8-10.6)
[2025-09-24 16:28] LABS: Hemoglobin 8.4 g/dL (13.5-16.0)
[2025-09-24 16:36] LABS: Albumin, Serum 3.8 gm/dL (3.4-4.8); Anion Gap 10 (7-16); BUN/Creatinine Ratio 18 Ratio (12-20); Blood Urea Nitrogen 36 mg/dL (9-23); Calcium 8.3 mg/dL (8.3-10.6); Calcium (Corrected) 8.5 mg/dL (8.5-10.1); Carbon Dioxide 22.4 mMol/L (20.0-31.0); Chloride 109 mMol/L (98-107); Creatinine (Component) 2.0 mg/dL (0.6-1.3); Glucose 101 mg/dL (74-106); Osmolality,Calculated 289 (275-295); Phosphorous 3.0 mg/dL (2.4-5.1); Potassium 4.9 mMol/L (3.4-5.1); Sodium 141 mMol/L (136-145); eGFR 32 See Note
== END | disposition home or self-care (01) ==
PROVIDERS: PCP Internal Medicine; Referring Provider Internal Medicine; Visit Provider Internal Medicine
DX: I11.0 Hypertensive heart disease with heart failure (principal)
CPT/HCPCS: 36415; 80069; 85025

== ENCOUNTER → 2025-09-28 | Outpatient (CLI) | payer MEDICARE, BC, SELFPAY ==
[2025-09-28 10:49] LABS: Collection Type, Urine Clean Catch
[2025-09-28 11:20] LABS: Bilirubin,Urine Negative (Negative); Blood,Urine Negative (Negative); Clarity,Urine Clear (Clear/Hazy); Color,Urine Yellow (Lt Yel-Yel); Culture Indicated,Urine Not Indicated; Glucose, Urine Negative (Negative); Ketones,Urine Negative (Negative); Leukocyte Esterase,Urine Negative (Negative); Nitrite,Urine Negative (Negative); PH,Urine 6.0 (5.0-7.0); Protein,Urine Trace (Neg - Trace); RBC,Urine 2 /hpf (0-3); Specific Gravity,Urine 1.025 (1.001-1.035); Squamous Epithelial Cell,Urine < 1 /hpf (0-5); Urobilinogen,Urine 3.0 mg/dL (0.0-1.0); WBC,Urine 2 /hpf (0-5)
== END | disposition home or self-care (01) ==
LOC: SLDO 10:45
PROVIDERS: Referring Provider Internal Medicine; Visit Provider Internal Medicine
DX: N39.0 Urinary tract infection, site not specified (principal)
CPT/HCPCS: 81001

== ENCOUNTER → 2025-10-25 | Outpatient (CLI) | payer MEDICARE, BC, SELFPAY ==
--- NOTE | 2025-10-25 11:00 | XR_ITS ---
Examination: Retroperitoneal ultrasound, complete Technique: Multiple high resolution grayscale images of the retroperitoneum obtained, including kidneys and bladder. Exam date and time: October 25, 2025, 1108 hours INDICATIONS: Chronic kidney disease on laboratory examination performed 1 month ago. FINDINGS: Right kidney 8.9 cm renal cortex 0.9 cm 29 mm mid renal cyst Left kidney 8.4 cm renal cortex 0.8 cm Mid pole 21 x 23 mm cyst Moderate renal scar formation No hydronephrosis Contracted urinary bladder IMPRESSION: Small kidneys with bilateral renal cortical thinning Moderate bilateral renal scar formation No hydronephrosis
== END | disposition home or self-care (01) ==
PROVIDERS: PCP Internal Medicine; Referring Provider Internal Medicine; Visit Provider Internal Medicine
DX: N28.89 Other specified disorders of kidney and ureter (principal); N27.1 Small kidney, bilateral
CPT/HCPCS: 76770